=== PATIENT | female | born 1965 | race Caucasian/White ===

== ENCOUNTER 2018-09-23 12:16 | Emergency (ER) | payer BC, OTHER ==
[2018-09-23] MEDS ORDERED: NA CHLORIDE 0.9% 1,000 ML ONE ×2 (13:51→16:09)
[2018-09-23] MEDS ORDERED: MECLIZINE HCL 12.5 MG TAB ONE (13:51)
[2018-09-23] MEDS ORDERED: KETOROLAC 30 MG/ML INJ ONE (13:51)
[2018-09-23] MEDS ORDERED: ONDANSETRON 4 MG/2 ML VIAL ONE (13:51)
[2018-09-23 14:08] LABS: Absolute Lymphocytes (CBC) 1.9 K/uL (0.7-4.9); Absolute Monocytes 0.4 K/uL (0.1-1.3); Eosinophils % 1.4 % (0-4.4); Hematocrit 45.9 % (36.0-45.0); Lymphocytes % 28.8 % (15.3-44.8); MPV 9.2 fL (7.6-11.3); Monocytes % 6.4 % (3.3-12.3); RBC Red Blood Cell Count 4.95 M/uL (3.86-4.86)
[2018-09-23 14:18] LABS: Potassium 3.9 mmol/L (3.5-5.1)
[2018-09-23] MEDS ORDERED: PROMETHAZINE 25 MG/ML VIAL ONE (15:12)
--- NOTE | 2018-09-23 17:02 | ER ---
Nurse's Notes [facility] Name: Perry Guaman Age: 53 yrs Sex: Female : 1965 Arrival Date: 09/23/2018 Time: 12:19 Bed 25 Private MD: Adrián Stevens Diagnosis: Volume depletion;Dizziness and giddiness Presentation: 09/23 12:40 Presenting complaint: Patient states: vomiting and dizziness that began yesterday. Pt aa5 reports pain to forehead and cheeks and slight cough. Transition of care: patient was not received from another setting of care. Onset of symptoms was September 2018. Risk Assessment: Do you want to hurt yourself or someone else? Patient reports no desire to harm self or others. Initial Sepsis Screen: Does the patient meet any 2 criteria? No. Patient's initial sepsis screen is negative. Does the patient have a suspected source of infection? No. Patient's initial sepsis screen is negative. Care prior to arrival: None. 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 - Social history:: Smoking status: Patient/guardian denies using tobacco. - Ebola Screening: : No symptoms or risks identified at this time. Screenin:08 Abuse screen: Denies threats or abuse. Denies injuries from another. Nutritional rv screening: No deficits noted. Tuberculosis screening: No symptoms or risk factors identified. Fall Risk None identified. Assessment: 15:07 General: Appears in no apparent distress. comfortable, Behavior is calm, cooperative. rv Pain: Complains of pain in head. Neuro: Level of Consciousness is awake, alert, obeys commands, Oriented to person, place, time, situation, Reports headache. Cardiovascular: Capillary refill < 3 seconds. Respiratory: Airway is patent. GI: Abdomen is round. : No signs and/or symptoms were reported regarding the genitourinary system. EENT: No signs and/or symptoms were reported regarding the EENT system. Derm: Skin is intact. Musculoskeletal: No signs and/or symptoms reported regarding the musculoskeletal system. 16:00 Reassessment: Patient appears in no apparent distress at this time. Patient and/or rv family updated on plan of care and expected duration. Pain level reassessed. Patient is alert, oriented x 3, equal unlabored respirations, skin warm/dry/pink. Patient denies pain at this time. Patient states feeling better. Patient states symptoms have improved. 17:18 Reassessment: PATIENT DOES NOT COMPLAIN OF HEADACHE AND DIZZINESS UPON DISCHARGE. rv VERBALIZED THAT SHE GOT A RIDE GOING HOME. Vital Signs: 12:41 BP 124 / 79; Pulse 95; Resp 18 S; Temp 98.5(O); Pulse Ox 97% on R/A; Weight 81.65 kg aa5 (R); Height 5 ft. 4 in. (162.56 cm) (R); Pain 10/10; 13:23 BP 113 / 62 LA Supine (auto/lg); Pulse 92; Resp 18; Pulse Ox 100% on R/A; jp3 13:25 BP 118 / 73 LA Sitting (auto/lg); Pulse 107; Resp 18; Pulse Ox 100% on R/A; jp3 13:27 BP 111 / 70 LA Standing (auto/lg); Pulse 125; Resp 18; Pulse Ox 100% on R/A; jp3 15:53 Pulse 81; Resp 18; Pulse Ox 99% on R/A; mg2 15:58 BP 112 / 60; Pulse 71; Resp 16; Pulse Ox 100% ; rv 17:00 BP 123 / 82 RA Supine; Pulse 72; Resp 17 S; Pulse Ox 100% on R/A; rv 12:41 Body Mass Index 30.90 (81.65 kg, 162.56 cm) aa5 13:23 Pt reported "feeling nausea, pounding headache, constant stomach pain" jp3 13:25 Pt reported "shaking of body, nausea, and felt about the same as supine" jp3 13:27 Pt reported " harder to breathe, dizziness, body shakes worse, and worse feeling jp3 postion of the three orthostatic" ED Course: 12:19 Patient arrived in ED. mr 12:19 Adrián Stevens MD is Private Physician. mr 12:40 Arm band placed on. aa5 12:41 Triage completed. aa5 13:11 [facility] kb 13:11 Bhupendra Courtney MD is Attending Physician. kb 13:19 Eduardo Swanson, RN is Primary Nurse. rv 13:30 Pulse ox on. NIBP on. jp3 13:30 Bed in low position. Call light in reach. Side rails up X 1. jp3 13:40 Initial lab(s) drawn, by mo, sent to lab. Inserted saline lock: 22 gauge in left jp3 forearm, using aseptic technique. Inserted saline lock: Blood collected. 13:48 Basic Metabolic Panel Sent. jp3 13:48 CBC with Diff Sent. jp3 17:17 No provider procedures requiring assistance completed. IV discontinued, intact, rv bleeding controlled, No redness/swelling at site. Pressure dressing applied. Administered Medications: 13:45 Drug: Zofran 4 mg Route: IVP; Site: left forearm; rv 15:06 Follow up: Response: Nausea is decreased rv 13:45 Drug: NS 0.9% 1000 ml Route: IV; Rate: 1000 ml; Site: left forearm; rv 15:06 Follow up: IV Status: Completed infusion; IV Intake: 1000ml rv 13:45 Drug: TORadol 30 mg Route: IVP; Site: left antecubital; rv 15:06 Follow up: Response: Pain is decreased rv 14:43 Drug: Meclizine 25 mg Route: PO; rv 15:59 Follow up: Response: No adverse reaction; Marked relief of symptoms rv 15:06 Drug: Phenergan 12.5 mg Route: IVP; Site: left forearm; rv 15:59 Follow up: Response: Marked relief of symptoms rv 16:03 Drug: NS 0.9% 1000 ml Route: IV; Rate: 1000 ml; Site: left forearm; rv 16:56 Follow up: IV Status: Completed infusion; IV Intake: 1000ml rv Intake: 15:06 IV: 1000ml; Total: 1000ml. rv 16:56 IV: 1000ml; Total: 2000ml. rv Outcome: 17:02 Discharge ordered by . kb 17:18 Discharged to home ambulatory. rv 17:18 Condition: good 17:18 Discharge instructions given to patient, Instructed on discharge instructions, follow up and referral plans. medication usage, Demonstrated understanding of instructions, follow-up care, medications, Prescriptions given X 2. 17:20 Patient left the ED. rv Signatures: Jaclyn Simpson, ENDOCRINOLOGY PHYSICIAN-C ENDOCRINOLOGY PHYSICIAN-CkJennifer Brody mr Randhawa, Telma, RN RN aa5 Shabbir Og RN RN mg2 Eduardo Swanson RN RN rv Syed Mahan jp3
--- NOTE | 2018-09-23 17:02 | EDPHYS ---
Physician Documentation [facility] [place], [place] Name: Perry Guaman Age: 53 yrs Sex: Female : 1965 Arrival Date: 09/23/2018 Time: 12:19 Bed 25 Private MD: Adrián Stevens ED Physician Bhupendra Courtney HPI: 09/23 14:09 This 53 yrs old Female presents to ER via Ambulatory with complaints of kb Vomiting, Dizziness. 14:10 The patient presents with dizziness. Onset: The symptoms/episode began/occurred this kb morning. Context: occurred at home, occurred while the patient was getting up from bed, just prior to the episode the patient experienced no apparent symptoms. Modifying factors: The symptoms are alleviated by nothing, the symptoms are aggravated by movement of head, standing up, changing position. Associated signs and symptoms: Pertinent positives: nausea, vomiting, Pertinent negatives: abdominal pain, agitation, ataxia, blurred vision, chest pain, combativeness, confusion, diaphoresis, focal weakness, head injury, headache, near-syncope, numbness, palpitations, , seizure, shortness of breath, syncope, tingling. Severity of symptoms: At their worst the symptoms were moderate in the emergency department the symptoms are unchanged. Patient's baseline: Neuro: alert and fully oriented, Motor: no deficits, Ambulation: walks without assistance, Speech: normal. The patient has not experienced similar symptoms in the past. The patient has not recently seen a physician. 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 - Social history:: Smoking status: Patient/guardian denies using tobacco. - Ebola Screening: : No symptoms or risks identified at this time. ROS: 14:08 Constitutional: Negative for fever, chills, and weight loss, ENT: Negative for injury, kb pain, and discharge, Neck: Negative for injury, pain, and swelling, Cardiovascular: Negative for chest pain, palpitations, and edema, Respiratory: Negative for shortness of breath, cough, wheezing, and pleuritic chest pain, Back: Negative for injury and pain, : Negative for injury, bleeding, discharge, and swelling, MS/Extremity: Negative for injury and deformity, Skin: Negative for injury, rash, and discoloration. 14:08 Abdomen/GI: Positive for nausea and vomiting, Negative for abdominal pain, diarrhea, constipation, abdominal cramps, abdominal distension, anorexia. 14:08 Neuro: Positive for dizziness. Exam: 14:07 Constitutional: This is a well developed, well nourished patient who is awake, alert, kb and in no acute distress. Head/Face: Normocephalic, atraumatic. Eyes: Pupils equal round and reactive to light, extra-ocular motions intact. Lids and lashes normal. Conjunctiva and sclera are non-icteric and not injected. Cornea within normal limits. Periorbital areas with no swelling, redness, or edema. ENT: Nares patent. No nasal discharge, no septal abnormalities noted. Tympanic membranes are normal and external auditory canals are clear. Oropharynx with no redness, swelling, or masses, exudates, or evidence of obstruction, uvula midline. Mucous membranes moist. Neck: Trachea midline, no thyromegaly or masses palpated, and no cervical lymphadenopathy. Supple, full range of motion without nuchal rigidity, or vertebral point tenderness. No Meningismus. Chest/axilla: Normal chest wall appearance and motion. Nontender with no deformity. No lesions are appreciated. Cardiovascular: Regular rate and rhythm with a normal S1 and S2. No gallops, murmurs, or rubs. Normal PMI, no JVD. No pulse deficits. Respiratory: Lungs have equal breath sounds bilaterally, clear to auscultation and percussion. No rales, rhonchi or wheezes noted. No increased work of breathing, no retractions or nasal flaring. Abdomen/GI: Soft, non-tender, with normal bowel sounds. No distension or tympany. No guarding or rebound. No evidence of tenderness throughout. Back: No spinal tenderness. No costovertebral tenderness. Full range of motion. Skin: Warm, dry with normal turgor. Normal color with no rashes, no lesions, and no evidence of cellulitis. MS/ Extremity: Pulses equal, no cyanosis. Neurovascular intact. Full, normal range of motion. Neuro: Awake and alert, GCS 15, oriented to person, place, time, and situation. Cranial nerves II-XII grossly intact. Motor strength 5/5 in all extremities. Sensory grossly intact. Cerebellar exam normal. Normal gait. Vital Signs: 12:41 BP 124 / 79; Pulse 95; Resp 18 S; Temp 98.5(O); Pulse Ox 97% on R/A; Weight 81.65 kg aa5 (R); Height 5 ft. 4 in. (162.56 cm) (R); Pain 10/10; 13:23 BP 113 / 62 LA Supine (auto/lg); Pulse 92; Resp 18; Pulse Ox 100% on R/A; jp3 13:25 BP 118 / 73 LA Sitting (auto/lg); Pulse 107; Resp 18; Pulse Ox 100% on R/A; jp3 13:27 BP 111 / 70 LA Standing (auto/lg); Pulse 125; Resp 18; Pulse Ox 100% on R/A; jp3 15:53 Pulse 81; Resp 18; Pulse Ox 99% on R/A; mg2 15:58 BP 112 / 60; Pulse 71; Resp 16; Pulse Ox 100% ; rv 17:00 BP 123 / 82 RA Supine; Pulse 72; Resp 17 S; Pulse Ox 100% on R/A; rv 12:41 Body Mass Index 30.90 (81.65 kg, 162.56 cm) aa5 13:23 Pt reported "feeling nausea, pounding headache, constant stomach pain" jp3 13:25 Pt reported "shaking of body, nausea, and felt about the same as supine" jp3 13:27 Pt reported " harder to breathe, dizziness, body shakes worse, and worse feeling jp3 postion of the three orthostatic" MDM: 13:11 Patient medically screened. kb 14:07 Data reviewed: vital signs, nurses notes. Data interpreted: Pulse oximetry: on room air kb is 100 %. Interpretation: normal. 16:10 Counseling: I had a detailed discussion with the patient and/or guardian regarding: the kb historical points, exam findings, and any diagnostic results supporting the discharge/admit diagnosis, lab results, the need for outpatient follow up, a family practitioner, to return to the emergency department if symptoms worsen or persist or if there are any questions or concerns that arise at home. 09/23 13:19 Order name: CBC with Diff; Complete Time: 14:15 kb 09/23 13:19 Order name: Basic Metabolic Panel; Complete Time: 14:19 kb 09/23 17:08 Order name: Urine Dipstick--Ancillary (enter results) bd 09/23 13:19 Order name: Orthostatics; Complete Time: 13:33 kb 09/23 13:19 Order name: Urine Dipstick-Ancillary (obtain specimen); Complete Time: 17:17 kb 09/23 13:19 Order name: IV Start; Complete Time: 13:48 kb 09/23 15:36 Order name: Vital Signs; Complete Time: 15:55 kb Administered Medications: 13:45 Drug: Zofran 4 mg Route: IVP; Site: left forearm; rv 15:06 Follow up: Response: Nausea is decreased rv 13:45 Drug: NS 0.9% 1000 ml Route: IV; Rate: 1000 ml; Site: left forearm; rv 15:06 Follow up: IV Status: Completed infusion; IV Intake: 1000ml rv 13:45 Drug: TORadol 30 mg Route: IVP; Site: left antecubital; rv 15:06 Follow up: Response: Pain is decreased rv 14:43 Drug: Meclizine 25 mg Route: PO; rv 15:59 Follow up: Response: No adverse reaction; Marked relief of symptoms rv 15:06 Drug: Phenergan 12.5 mg Route: IVP; Site: left forearm; rv 15:59 Follow up: Response: Marked relief of symptoms rv 16:03 Drug: NS 0.9% 1000 ml Route: IV; Rate: 1000 ml; Site: left forearm; rv 16:56 Follow up: IV Status: Completed infusion; IV Intake: 1000ml rv Disposition: 17:45 Co-signature as Attending Physician, Bhupendra Courtney MD I agree with the assessment and kdr plan of care. Disposition: 09/23/18 17:02 Discharged to Home. Impression: Volume depletion, Dizziness and giddiness. - Condition is Stable. - Discharge Instructions: Vertigo, Xngs-bh-Cvjm, Dehydration, Adult, Ncas-og-Vqks, Dizziness, Mlnb-fo-Ggxx. - Prescriptions for Meclizine 25 mg Oral Tablet - take 1 tablet by ORAL route every 8 hours As needed; 30 tablet. promethazine 25 mg Oral Tablet - take 1 tablet by ORAL route every 8 hours As needed; 20 tablet. - Medication Reconciliation Form, Thank You Letter, Antibiotic Education, Prescription Opioid Use, Work release form form. - Follow up: Emergency Department; When: As needed; Reason: Worsening of condition. Follow up: Private Physician; When: 2 - 3 days; Reason: Recheck today's complaints, Continuance of care, Re-evaluation by your physician. Signatures: Dispatcher [employer] EDMS Jaclyn Simpson, REACHER-C REACHER-Ckb Bhupendra Courtney MD MD kdr Telma Randhawa RN RN aa5 Eduardo Swanson RN RN rv Corrections: (The following items were deleted from the chart) 17:20 17:02 09/23/2018 17:02 Discharged to Home. Impression: Volume depletion; Dizziness and rv giddiness. Condition is Stable. Discharge Instructions: Vertigo, Hgbt-jh-Fvli, Dehydration, Adult, Bjcp-pz-Qbro, Dizziness, Dapj-nb-Bsgx. Prescriptions for Meclizine 25 mg Oral Tablet - take 1 tablet by ORAL route every 8 hours As needed; 30 tablet, promethazine 25 mg Oral Tablet - take 1 tablet by ORAL route every 8 hours As needed; 20 tablet. and Forms are Medication Reconciliation Form, Thank You Letter, Antibiotic Education, Prescription Opioid Use. Follow up: Emergency Department; When: As needed; Reason: Worsening of condition. Follow up: Private Physician; When: 2 - 3 days; Reason: Recheck today's complaints, Continuance of care, Re-evaluation by your physician. kb
[2018-09-23 18:05] VITALS: TEMP 98.5
[2018-09-23 18:13] VITALS: O2SAT 100
[2018-09-23 18:14] VITALS: BP 123/82
[2018-09-23 19:06] LABS: Urine Blood TRACE (NEG); Urine Glucose NEGATIVE (NEG); Urine Protein NEGATIVE (NEG)
== END 2018-09-23 17:20 | disposition home or self-care (01) ==
LOC: ER 12:16
DX: E86.9 Volume depletion, unspecified (principal); R42 Dizziness and giddiness; R11.2 Nausea with vomiting, unspecified; Z88.1 Allergy status to other antibiotic agents; Z88.5 Allergy status to narcotic agent
CPT/HCPCS: 36415; 80048; 81003; 85025; 96361; 96374; 96375; 99284; J2405; J2550; J7030

== ENCOUNTER 2020-04-17 14:52 | Emergency (ER) | payer BC ==
--- OUTSIDE RECORDS SUMMARY | 2020-04-17 14:54 | XMS REPORT | Continuity of Care Document ---
:1965 Author Organization [facility] t Address [address] [place] [address] Care Team Providers Name Role Phone Christopher Leslie Attending Clinician Doctor Unassigned, Name Attending Clinician Unavailable Payers Payer Name Policy Type Policy Number Effective Date Expiration Date S ource Problems This patient has no known problems. Allergies, Adverse Reactions, Alerts This patient has no known allergies or adverse reactions. Medications This patient has no known medications. Procedures This patient has no known procedures. Encounters Start End Encounter Admission Attending Care Care Encounter Source Date/Time Date/Time Type Type Clinicians Facility Department ID 2019-07-07 2019-07-07 Emergency [facility] [id number] 14:28:25 17:05:00 Racquel Jeffries [id number] [place] [id number] [place] [id number] 2019-07-07 2019-07-07 Orders Doctor WALE [id number] 00:00:00 00:00:00 Only UnassLORI moore [id number] [place] [facility] [id number] Results Test Description Test Time Test Comments Results Result Sour e Comments - CT MAXIFAC W/O 2018-12-27 Name: TOSHA AGUIRRE CONTRAST 13:46:00 [facility] : 1965 Age/S: 53 / F [id number] [address] [place] Unit #: [id number] Loc: [place] [address] Phys: Derrek Golden III, MD Acct: [id number] Dis Date: Status: REG CLI PHONE #: [phone] Exam Date: 12/27/2018 1121 FAX #: Reason: CHRONIC SINUSITIS EXAMS: CPT: [id number] CT MAXIFAC W/O CONTRAST 03098 CLINICAL HISTORY: Chronic sinusitis. CT sinuses, unenhanced. Reformatted sagittal and coronal images. COMPARISON: None. Automated exposure control, iterative reconstruction technique, and/or adjustment of mA and/or kV according to patient's size was utilized for optimum radiation dose reduction. An unenhanced study of the the sinuses was performed on bone algorithm settings. The frontal sinuses are well-developed and well inflated with no mucoperiosteal thickening. Ethmoid air cells symmetric as well. Normal aeration pattern. Sphenoid sinuses are clear. The maxillary sinuses are well-inflated with no fluid levels are seen with sinusitis. Unerupted wisdom teeth at the posterior margins of the maxillary sinuses at the maxillary ridge. No inflammatory changes in the area can be seen. Temporal bones are well-aerated. Middle ear structures grossly intact. TMJ articulations are appropriate.. The reformatted coronal images show the sinuses well-inflated. Nasal passages symmetric. Small right nasal septal spur but no significant deviation. Infundibular areas are intact. Medial and orbital floors preserved. The soft tissue window settings show parotid glands intact. Nasopharyngeal soft tissues are symmetric. Parapharyngeal spaces are intact. Orbital contents appropriate as well. IMPRESSION: No evidence of acute or chronic sinusitis. Nasal passages intact with small right nasal septal spur but no deviation of the septum distinctly. Location: U19 at 1346 Reported and signed by: Elie Dorado M.D. PAGE 1 Signed Report (CONTINUED) Name: TOSHA AGUIRRE [place] : 1965 Age/S: 53 / F [id number] [address] [place] Unit #: [id number] Loc: [place] [address] Phys: Derrek Golden III, MD Acct: [id number] Dis Date: Status: REG CLI PHONE #: [phone] Exam Date: 12/27/2018 1121 FAX #: Reason: CHRONIC SINUSITIS EXAMS: CPT: [id number] CT MAXIFAC W/O CONTRAST 19531 <Continued> CC: Adrián Stevens MD; Derrek Golden III, MD Technologist:Salas Sherman, RT(R)(CT) CTDI: DLP: Trnscb Date/Time: 12/27/2018 (9560) Chris Orig Print D/T: S: 12/27/2018 (2642) PAGE 2 Signed Report
--- NOTE | 2020-04-17 15:55 | ER ---
Nurse's Notes [facility] Name: Perry Guaman Age: 54 yrs Sex: Female : 1965 Arrival Date: 04/17/2020 Time: 15:01 Bed 26 Private MD: Diagnosis: Otitis externa in other diseases classified elsewhere, left ear;Otitis media, unspecified, left ear Presentation: 04/17 15:11 Chief complaint: Patient states: "My left ear is hurting me and I am having some jd3 hearing loss.". Coronavirus screen: At this time, the client does not indicate any symptoms associated with coronavirus-19. Ebola Screen: Patient negative for fever greater than or equal to 101.5 degrees Fahrenheit, and additional compatible Ebola Virus Disease symptoms. Initial Sepsis Screen: Does the patient meet any 2 criteria? No. Patient's initial sepsis screen is negative. Does the patient have a suspected source of infection? No. Patient's initial sepsis screen is negative. Risk Assessment: Do you want to hurt yourself or someone else? Patient reports no desire to harm self or others. Onset of symptoms was April 10, 2020. 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 - Social history:: Smoking status: Patient denies any tobacco usage or history of. Screenin:30 Abuse screen: Denies threats or abuse. Nutritional screening: No deficits noted. aa5 Tuberculosis screening: No symptoms or risk factors identified. Fall Risk None identified. Assessment: 15:30 General: Appears comfortable, Behavior is calm, cooperative. Pain: Complains of pain in aa5 left ear Pain currently is 10 out of 10 on a pain scale. Neuro: Level of Consciousness is awake, alert, obeys commands, Oriented to person, place, time, situation. Cardiovascular: Heart tones S1 S2 present Rhythm is regular. Respiratory: Airway is patent Respiratory effort is even, unlabored, Respiratory pattern is regular, symmetrical. GI: No signs and/or symptoms were reported involving the gastrointestinal system. : No signs and/or symptoms were reported regarding the genitourinary system. EENT: Reports pain in left ear. Derm: Skin is pink, warm \\T\\ dry. Musculoskeletal: Range of motion: intact in all extremities. 16:00 Reassessment: Patient is alert, oriented x 3, equal unlabored respirations, skin aa5 warm/dry/pink. Vital Signs: 15:14 BP 129 / 66; Pulse 84; Resp 16 S; Temp 98.0(TE); Pulse Ox 100% on R/A; Weight 81.65 kg jd3 (R); Height 5 ft. 4 in. (162.56 cm) (R); Pain 10/10; 15:14 Body Mass Index 30.90 (81.65 kg, 162.56 cm) jd3 ED Course: 15:01 Patient arrived in ED. ag5 15:12 Triage completed. jd3 15:15 Arm band placed on. jd3 15:19 Telma Randhawa, NICHO is Primary Nurse. aa5 15:30 Patient has correct armband on for positive identification. Bed in low position. aa5 15:31 Chinedu Read PA is PHCP. cp 15:31 Wm Peralta MD is Attending Physician. cp 15:54 Aide Snider MD is Referral Physician. cp 16:00 No provider procedures requiring assistance completed. Patient did not have IV access aa5 during this emergency room visit. Administered Medications: No medications were administered Outcome: 15:54 Discharge ordered by MD. cp 16:00 Discharged to home ambulatory. aa5 16:00 Condition: stable 16:00 Discharge instructions given to patient, Instructed on discharge instructions, follow up and referral plans. medication usage, Demonstrated understanding of instructions, follow-up care, medications, Prescriptions given X 2. 16:03 Patient left the ED. aa5 Signatures: Telma Randhawa, RN RN aa5 Chinedu Read PA PA cp Davies, Jonathon, RN RN jShaquille Cerrato ag5 Corrections: (The following items were deleted from the chart) 15:16 15:14 Pulse 84bpm; Resp 16bpm; Spontaneous; Pulse Ox 100% RA; Temp 98.0F Temporal; jd3 81.65 kg Reported; Height 5 ft. 4 in. Reported; BMI: 30.9; Pain 03/13; jd3
--- NOTE | 2020-04-17 15:55 | EDPHYS ---
Physician Documentation [facility] Name: Perry Guaman Age: 54 yrs Sex: Female : 1965 Arrival Date: 04/17/2020 Time: 15:01 Bed 26 Private MD: ED Physician Wm Peralta HPI: 04/17 15:51 This 54 yrs old Female presents to ER via Ambulatory with complaints of Ear cp Pain. 15:51 The patient presents with drainage, that is purulent, pain, that is acute, swelling, cp tenderness. The complaints affect the left ear. 15:52 Onset: The symptoms/episode began/occurred 4 day(s) ago. Associated signs and symptoms: cp Pertinent negatives: cough, fever. ENGAGEMENT LEAD: 15:14 LMP N/A - Hysterectomy jd3 Historical: - Allergies: 15:14 Demerol; jd3 15:14 Septra; jd3 15:14 Bactrim; jd3 - Home Meds: 15:14 Flonase Nasal [Active]; Singulair Oral [Active]; jd3 - PMHx: 15:14 Renal Disease; jd3 - PSHx: 15:14 Hysterectomy; heart ablation; jd3 - Immunization history:: Adult Immunizations up to date. - Social history:: Smoking status: Patient denies any tobacco usage or history of. ROS: 15:52 Constitutional: Negative for body aches, chills, fever, poor PO intake. cp 15:52 ENT: Positive for drainage from ear(s), ear pain, Negative for sore throat, difficulty swallowing, difficulty handling secretions. 15:52 Respiratory: Negative for cough, shortness of breath, wheezing. cp 15:52 Abdomen/GI: Negative for abdominal pain, nausea, vomiting, and diarrhea. cp 15:52 Skin: Negative for rash. 15:52 Neuro: Negative for dizziness, headache. 15:52 All other systems are negative. Exam: 15:53 Head/Face: Normocephalic, atraumatic. cp 15:53 Constitutional: The patient appears in no acute distress, alert, awake, non-toxic, well developed, well nourished. 15:53 Eyes: Periorbital structures: appear normal, Conjunctiva: normal, no exudate, no injection, Sclera: no appreciated abnormality, Lids and lashes: appear normal, bilaterally. 15:53 ENT: External ear(s): pain with movement, that is mild, of the pinna of left ear and left ear canal, Ear canal(s): purulent discharge, that is moderate, in the left canal, swelling, that is moderate, of the left canal, TM's: not visable, because of discharge, Examination of the other ear shows no obvious abnormality. 15:53 Neck: ROM/movement: is normal, is supple, without pain, no range of motions cp limitations, Lymph nodes: no appreciated lymphadenopathy. 15:53 Chest/axilla: Inspection: normal. cp 15:53 Cardiovascular: Rate: normal. 15:53 Respiratory: the patient does not display signs of respiratory distress, Respirations: normal, no use of accessory muscles, no retractions. 15:53 Skin: no rash present. Vital Signs: 15:14 BP 129 / 66; Pulse 84; Resp 16 S; Temp 98.0(TE); Pulse Ox 100% on R/A; Weight 81.65 kg jd3 (R); Height 5 ft. 4 in. (162.56 cm) (R); Pain 10/10; 15:14 Body Mass Index 30.90 (81.65 kg, 162.56 cm) jd3 MDM: 15:32 Patient medically screened. cp 15:53 Differential diagnosis: otitis media, otitis externa, ruptured TM, foreign body, cp cerumen impaction, barotrauma . Counseling: I had a detailed discussion with the patient and/or guardian regarding: the historical points, exam findings, and any diagnostic results supporting the discharge/admit diagnosis, to return to the emergency department if symptoms worsen or persist or if there are any questions or concerns that arise at home. 15:54 Data reviewed: vital signs, nurses notes, and as a result, I will discharge patient. cp Administered Medications: No medications were administered Disposition: 16:05 Chart complete. cp 17:24 Co-signature as Attending Physician, Wm Peralta MD. rn Disposition: 04/17/20 15:54 Discharged to Home. Impression: Otitis externa in other diseases classified elsewhere, left ear, Otitis media, unspecified, left ear. - Condition is Stable. - Discharge Instructions: Otitis Media, Adult, Otitis Externa. - Prescriptions for Augmentin 875- 125 mg Oral Tablet - take 1 tablet by ORAL route every 12 hours for 10 days; 20 tablet. Ciprodex 0.3- 0.1 % Otic Drops, Suspension - instill 4 drop by OTIC route every 12 hours for 7 days , for ears ONLY; 1 Container. - Medication Reconciliation Form, Thank You Letter, Antibiotic Education, Prescription Opioid Use form. - Follow up: Aide Snidre MD; When: 2 - 3 days; Reason: Recheck today's complaints. - Problem is new. - Symptoms have improved. Signatures: Wm Peralta MD MD rn Calderon, Audri RN RN aa5 Chinedu Read PA PA cp Frenie Hill RN RN jd3 Corrections: (The following items were deleted from the chart) 15:55 15:54 04/17/2020 15:54 Discharged to Home. Impression: Otitis externa in other diseases cp classified elsewhere, left ear. Condition is Stable. Forms are Medication Reconciliation Form, Thank You Letter, Antibiotic Education, Prescription Opioid Use. Follow up: Aide Snider; When: 2 - 3 days; Reason: Recheck today's complaints. Problem is new. Symptoms have improved. cp 16:03 15:55 04/17/2020 15:54 Discharged to Home. Impression: Otitis externa in other diseases aa5 classified elsewhere, left ear; Otitis media, unspecified, left ear. Condition is Stable. Discharge Instructions: Otitis Externa, Otitis Media, Adult. Prescriptions for Augmentin 875-125 mg Oral Tablet - take 1 tablet by ORAL route every 12 hours for 10 days; 20 tablet, Ciprodex 0.3-0.1 % Otic Drops, Suspension - instill 4 drop by OTIC route every 12 hours for 7 days , for ears ONLY; 1 Container. and Forms are Medication Reconciliation Form, Thank You Letter, Antibiotic Education, Prescription Opioid Use. Follow up: Aide Snider; When: 2 - 3 days; Reason: Recheck today's complaints. Problem is new. Symptoms have improved. cp
[2020-04-17 16:30] VITALS: BP 129/66; TEMP 98; O2SAT 100
== END 2020-04-17 16:03 | disposition home or self-care (01) ==
LOC: ER 14:52
DX: H66.92 Otitis media, unspecified, left ear (principal); H60.92 Unspecified otitis externa, left ear; N28.9 Disorder of kidney and ureter, unspecified; Z88.1 Allergy status to other antibiotic agents; Z88.5 Allergy status to narcotic agent; Z88.8 Allergy status to other drugs, medicaments and biological substances
CPT/HCPCS: 99282

== ENCOUNTER 2021-07-15 08:16 | Emergency (ER) | payer BC ==
--- OUTSIDE RECORDS SUMMARY | 2021-07-15 08:19 | XMS REPORT | Continuity of Care Document ---
:1965 Author Organization [facility] t Address [address] [place] [address] Care Team Providers Name Role Phone Christopher Leslie Attending Clinician Christopher CLEMENT Attending Clinician Unavailable Doctor Unassigned, Name Attending Clinician Unavailable Payers Payer Name Policy Type Policy Number Effective Date Expiration Date Teddy MARTINEZ O [id number] 2016 00:00:00 2017 00:00 :00 Problems Condition Condition Condition Status Onset Resolution Last Treating Co mments Source Name Details Category Date Date Treatment Clinician Date Acute pain Acute pain Disease Active U nivers of right of right 3-16 ity of knee knee 00:00: [place] 00 Medical Branch Allergies, Adverse Reactions, Alerts Allergy Allergy Status Severity Reaction(s) Onset Inactive Treating Comm ents Source Name Type Date Date Clinician SULFA Drug Active Hives 2016-06 Univers (SULFONA Class 1-12 ity of MIDE 00:00: [place] ANTIBIOT 00 Medical ICS) Branch Sulfa Propensi Active Hives 2016-06 Univers (Sulfona ty to 1-12 ity of mide adverse 00:00: [place] Antibiot reaction 00 Medica l ics) s Branch Meperidi Propensi Active Nausea Univer s ne Hcl ty to and/or 3-16 ity of adverse Vomiting 00:00: [place] reaction 00 Medical s Branch Septra Propensi Active Nausea Univers I.V. ty to and/or 3-16 ity of adverse Vomiting 00:00: [place] reaction 00 Medical s Branch MEPERIDI DRUG Active Hives Univers NE HCL INGREDI 3-16 ity of 00:00: [place] [facility] SEPTRA DRUG Active Hives Univers I.V. 3-16 ity of 00:00: [place] [facility] Social History Social Habit Start Date Stop Date Quantity Comments Source Sex Assigned At [facility] Medical Branch Alcohol intake 2019-07-07 2019-07-07 [facility] 00:00:00 00:00:00 [facility] Branch Smoking Status Start Date Stop Date Source Never smoker [facility] Medications Ordered Filled Start Stop Current Ordering Indication Dosage Frequency Signature Comments Components Source Medication Medication Date Date Medication? Clinician (SIG) Name Name ondansetron 2019-0 2020- No 4mg 4 mg, Slow Univers (ZOFRAN 2-08 03-03 IV Push, ity of (PF)) 23:15: 22:10 ONCE, 1 [place] injection 4 00 :00 dose, Mon Med ical mg 20 at Branch 1715, [facility] NaCl 0.9% 2020-0 2020- No 1000mL at 999 Uni vers (NS) bolus 2-03 02-03 mL/hr, ity of infusion 22:15: 23:02 1,000 mL, [place] as 1,000 mL 00 :00 IV Medical Infusion, [place] ONCE, 1 dose, 07/07/19 at 1615, [facility] ondansetron 2019-0 2020- No 4mg 4 mg, Slow Univers (ZOFRAN 2 02-03 IV Push, ity of (PF)) 22:00: 21:04 ONCE, 1 [place] injection 4 00 :00 dose, Mon Med ical mg 2/320 at Branch 1600, [facility] NaCl 0.9% 2020-0 2020- No 1000mL at 999 Uni vers (NS) bolus 2-03 02-03 mL/hr, ity of infusion 21:00: 22:11 1,000 mL, [place] as 1,000 mL 00 :00 IV Medical Infusion, [place] ONCE, 1 dose, 07/07/19 at 1500, [facility] ONDANSETRON 2020-0 Yes [id number] 4mg Take 1 Univers 4 mg 2-03 tablet by ity of disintegrat 00:00: mouth [place] ing tablet 00 every 8 Medica l (eight) Branch hours as needed for Nausea and Vomiting (N/V). methylPREDN 2017-0 Yes 84mg Take 21 Uni vers ISolone 3-16 tablets by ity of (MEDROL, 00:00: mouth [place] THALIA,) 4 mg 00 SEE-INSTRU Med ical tablets CTIONS. Branch follow package directions methylPREDN 2017-0 Yes 84mg Take 21 Uni vers ISolone 3-16 tablets by ity of (MEDROL, 00:00: mouth [place] THALIA,) 4 mg 00 SEE-INSTRU Med ical tablets CTIONS. Branch follow package directions Vital Signs Vital Name Observation Time Observation Value Comments Source Systolic blood 2019-07-07 22:52:00 116 mm[Hg] Univer sity of [email or web address] Diastolic blood 2019-07-07 22:52:00 60 mm[Hg] [facility] [[email or web address] Heart rate 2019-07-07 22:52:00 70 /min [facility] Respiratory rate 2019-07-07 22:52:00 14 /min [facility] saturation in 2019-07-07 22:52:00 100 /min University of Arterial blood by [place] [employer] [facility]sy Pulse oximetry Branch Body temperature 2019-07-07 20:45:50 36.89 Erna [facility] Body weight 2019-07-07 20:29:00 74.844 kg [facility] BMI 2019-07-07 20:29:00 28.32 kg/m2 [facility] Systolic blood 2019-07-07 22:52:00 116 mm[Hg] Univer sity of [email or web address] Diastolic blood 2019-07-07 22:52:00 60 mm[Hg] [facility] rate 2019-07-07 22:52:00 70 /min [facility] Respiratory rate 2019-07-07 22:52:00 14 /min [facility] Oxygen saturation in 2019-07-07 22:52:00 100 /min University of Arterial blood by [place] [employer] [facility] Pulse oximetry Branch Body temperature 2019-07-07 20:45:50 36.89 Erna [facility] Body weight 2019-07-07 20:29:00 74.844 kg [facility] BMI 2019-07-07 20:29:00 28.32 kg/m2 Universi ty [facility] Procedures Procedure Date / Time Performing Clinician Source Performed URINALYSIS 2019-07-07 21:23:00 Xavier Clement [place] [facility] COMP. METABOLIC PANEL 2019-07-07 21:04:00 Xavier Clement [facility] ([id number]) [facility] CBC WITH DIFFERENTIAL 2019-07-07 21:04:00 Xavier Clement [facility] NOTICE OF PRIVACY 2019-07-07 20:16:20 Doctor Unassigned, No Univ [facility] PRACTICES Name [facility] CONSENT/REFUSAL FOR 2019-07-07 20:16:07 Doctor Unassigned, No [facility] DIAGNOSIS AND TREATMENT Name [facility] Encounters Start End Encounter Admission Attending Care Care Encounter Source Date/Time Date/Time Type Type Clinicians Facility Department ID 2019-07-07 2019-07-07 Emergency [facility] [id number] 14:28:25 17:05:00 Xavier Jeffries [id number] [place] 4.2.7.2.686 [place] [id number] 2019-07-07 2019-07-07 Emergency [facility] [id number] Univers 14:28:25 17:05:00 Xavier Jeffries [id number] i ty of [place] [address] [place] [address] [id number] [place] [address] Branch 2019-07-07 2019-07-07 Emergency X [facility] ERT [id number] Univers 14:28:25 17:05:00 XAVIER paul [facility] 2019-07-07 2019-07-07 Orders Doctor ECHEVARRIA [id number] 00:00:00 00:00:00 Only UnassLORI moore 350.1.13.[address] [place] [address] [id number] 2019-07-07 2019-07-07 Orders Doctor ECHEVARRIA [id number] Univers 00:00:00 00:00:00 Only UnassignedLORI 350.1.13.10 ity of [place] [facility] 4.2.7.2.686 Fed[place] as [id number] [address] Results Test Description Test Time Test Comments Results Result Comments Source URINALYSIS 2019-07-07 21:58:00 Test Item Value Reference Range Interpretation Comme nts APPEARANCE (test code = Hazy Clear A 9026665768) COLOR (test code = 1435477410) Yellow Yellow PH (test code = 7194869072) 4.8-8.0 SP GRAVITY (test code = 1.003-1.030 7579419639) GLU U QUAL (test code = Normal Normal 5837103962) BLOOD (test code = 2695524223) 2+ Negative A KETONES (test code = 3176871182) 80 mg/dL Negative A PROTEIN (test code = 2887-8) Negative Negative UROBILIN (test code = Normal Normal 1514681300) BILIRUBIN (test code = Negative Negative 1427449202) NITRITE (test code = 0415566961) Negative Negative LEUK PHOEBE (test code = 75/uL Negative A 4831228104) RBC/HPF (test code = 6380682687) See_Comment H [Automated message] The system which ge nerated this result transmit margaret reference range: 0 - 3 HP F. The reference range was not used to interpret th is result as normal/abnormal . WBC/HPF (test code = 4469799365) See_Comment [Automated message] The system which ge nerated this result transmit margaret reference range: 0 - 5 HP F. The reference range was not used to interpret th is result as normal/abnormal . BACTERIA (test code = Negative Negative 9270940358) MUCOUS (test code = 1272426859) Slight Negative LPF A SQ EPITH (test code = HPF 1796483292) Lab Interpretation (test code = Abnormal 96021-8) [facility]. METABOLIC PANEL ([id number])2019-07-07 21:49:00 Test Item Value Reference Range Interpretation Comments NA (test code = 137 mmol/L 135-145 3809965288) K (test code = 3.4 mmol/L 3.5-5 L 9275795980) CL (test code = 101 mmol/L 98-108 7185977232) CO2 TOTAL (test code = 24 mmol/L 23-31 0197157169) AGAP (test code = 2-16 0390688450) BUN (test code = 14 mg/dL 7-23 9109111459) GLUCOSE (test code = 94 mg/dL 70-110 7395046793) CREATININE (test code = 0.84 mg/dL 0.5-1.04 1894907968) TOTAL BILI (test code = 0.8 mg/dL 0.1-1.1 6754027957) CALCIUM (test code = 8.9 mg/dL 8.6-10.6 7950771964) T PROTEIN (test code = 8.2 g/dL 6.3-8.2 7367045164) ALBUMIN (test code = 4.6 g/dL 3.5-5 6541439453) ALK PHOS (test code = 193 U/L 34-122 H 2504561731) ALTv (test code = 35 U/L 5-35 1742-6) AST(SGOT) (test code = 44 U/L 13-40 H 3469810990) eGFR Calculation mL/min/1.73m2 (Non-) (test code = 8017746470) eGFR Calculation mL/min/1.73m2 () (test code = 2094959666) FRANCES (test code = FRANCES) Association of Glomerular Filtration Rate (GFR) and Staging of Kidney Disease* + --+ --+ ------+| GFR (mL/min/1.73 m2) ?| With Kidney Damage ?| ?Without Kidney Damage+ --------+ --------+ +| ?>90 ?| ?Stage one ?| ? Normal ?+ ---+ ---+ -------+| ?60-89 ?| ?Stage two ?| ? Decreased GFR ? + --+ --+ ------+| ?30-59 ?| ?Stage three ?| ? Stage three ? + --+ --+ ------+| ?15-29 ?| ?Stage four ? | ? Stage four ?+ ---+ ---+ -------+| ?<15 (or dialysis) ? ?| ?Stage five ? | ? Stage five ?+ ---+ ---+ -------+ *Each stage assumes the associated GFR level has been in effect for at least three months. ?Stages 1 to 5, with or without kidney disease, indicate chronic kidney disease. Notes: Determination of stages one and two (with eGFR >59mL/min/1.73 m2) requires estimation of kidney damage for at least three months as defined by structural or functional abnormalities of the kidney, manifested by either:Pathological abnormalities or Markers of kidney damage (including abnormalities in the composition of the blood or urine or abnormalities in imaging tests). Lab Interpretation Abnormal (test code = 14313-7) [facility] WITH [id number] 21:46:00 Test Item Value Reference Range Interpretation Comments WBC (test code = See_Comment [Automated 6690-2) message] The sy stem which generated this result transmitted reference range : 4.30 - 11.10 10*3/?L. The reference range was not used to interpret this result as normal/abnormal . RBC (test code = See_Comment [Automated 789-8) message] The sy stem which generated this result transmitted reference range : 3.93 - 5.25 10*6/?L. The reference range was not used to interpret this result as normal/abnormal . HGB (test code = 15.3 g/dL 11.6-15 H 718-7) HCT (test code = 42.6 % 35.7-45.2 4544-3) MCV (test code = 88.9 fL 80.6-95.5 787-2) MCH (test code = 31.9 pg 25.9-32.8 785-6) MCHC (test code = 35.9 g/dL 31.6-35.1 H 786-4) RDW-SD (test code = 37.4 fL 39-49.9 L 11585-5) RDW-CV (test code = 11.6 % 12-15.5 L 788-0) PLT (test code = See_Comment [Automated 777-3) message] The sy stem which generated this result transmitted reference range : 166 - 358 10*3/ ?L. The reference r adryan was not used to interpret this result as normal/abnormal . MPV (test code = 10.7 fL 9.5-12.9 76322-7) NRBC/100 WBC (test See_Comment [Automat ed code = 9011576199) message] The system which generated this result transmitted reference range : 0.0 - 10.0 /100 WBCs. The refer ence range was not u sed to interpret th is result as normal/abnormal . NRBC x10^3 (test code <0.01 See_Comment [Auto mated = 0446198355) message] The s ystem which generated this result transmitted reference range : 10*3/?L. The reference range was not used to interpret this result as normal/abnormal . GRAN MAT (NEUT) % 42.9 % (test code = 770-8) IMM GRAN % (test code 0.20 % = 9850223760) LYMPH % (test code = 47.0 % 736-9) MONO % (test code = 8.5 % 5905-5) EOS % (test code = 0.8 % 713-8) BASO % (test code = 0.6 % 706-2) GRAN MAT x10^3(ANC) 2.27 10*3/uL 1.88-7.09 (test code = 4957748440) IMM GRAN x10^3 (test <0.03 0-0.06 code = 6994830300) LYMPH x10^3 (test code 2.48 10*3/uL 1.32-3.29 = 731-0) MONO x10^3 (test code 0.45 10*3/uL 0.33-0.92 = 742-7) EOS x10^3 (test code = 0.04 10*3/uL 0.03-0.39 711-2) BASO x10^3 (test code 0.03 10*3/uL 0.01-0.07 = 704-7) Lab Interpretation Abnormal (test code = 36213-4) [facility] MAXIFAC W/O [id number] 13:46:00 Name: TOSHA AGUIRRE [facility] : 1965 Age/S: 53 / F [address] Unit #: [id number] Loc: [place] [address] Phys: Derrek Golden III, MD Acct: [id number] Dis Date: Status: REG CLI PHONE #: [phone] Exam Date: 12/27/2018 1121 FAX #: Reason: CHRONICSINUSITIS EXAMS: CPT: [id number] CT MAXIFAC W/O CONTRAST 87825 CLINICAL HIS TORY: Chronic sinusitis. CT sinuses, unenhanced. Reformatted sagittal and coronal images. COMPARISON: None. Automated exposure control, iterative reconstruction technique, and/or adjustment of mA and/or kV according to patient's size was utilizedfor optimum radiation dose reduction. An unenhanced study of the the sinuses was performed on bone algorithm settings. The frontal sinuses are well- developed and well inflated with no mucoperiosteal thickening. Ethmoid air cells symmetric as well. Normal aeration pattern. Sphenoid sinuses are clear. The maxillary sinuses are well-inflated with no fluid levels are seen with sinusitis. Unerupted wisdom teeth at the posterior margins of the maxillary sinuses at the maxillary ridge. No inflammatory changes in the area can be seen. Temporal bones are well- aerated. Middle ear structures grossly intact. TMJ articulations [...] 1 Signed Report (CONTINUED) Name: TOSHA AGUIRRE [facility] : 1965 Age/S: 53 / F [address] Unit #: [id number] Loc: [place] [address] Phys: Derrek Golden III, MD Acct: [id number] Dis Date: Status: REG CLI PHONE #: [phone] Exam Date: 12/27/2018 1121 FAX #: Reason: CHRONIC SINUSITIS EXAMS: CPT: [id number] CT MAXIFAC W/O CONTRAST 04391 <Continued> CC: Adrián Steevns MD; Derrek Golden III, MD Technologist:Salas Sherman, RT(R)(CT) CTDI: DLP: Trnscb Date/Time: 12/27/2018 (1506) Chris Orig Print D/T: S: 12/27/2018 (6565) PAGE 2 Signed Report"
--- NOTE | 2021-07-15 08:28 | EDPHYS ---
Physician Documentation [facility] Name: Perry Guaman Age: 56 yrs Sex: Female : 1965 Arrival Date: 07/15/2021 Time: 08:19 Bed Waiting Private MD: TAM Physician Chinedu Zhou HPI: 07/15 08:32 This 56 yrs old Female presents to ER via Ambulatory with complaints of Ear Pain. kb 08:32 The patient presents with pain, moderate. The complaints affect the right ear and left kb ear. Onset: The symptoms/episode began/occurred 3 day(s) ago. Modifying factors: The symptoms are alleviated by nothing, the symptoms are aggravated by nothing. Associated signs and symptoms: The patient has no apparent associated signs or symptoms. Severity of symptoms: At their worst the symptoms were moderate in the emergency department the symptoms are unchanged. The patient has not experienced similar symptoms in the past. The patient has not recently seen a physician. Pt reports pain to bilateral ears that started 3 days ago. Has had several infections in the past and this feels the same. Denies fever or drainage. Historical: - Allergies: 08:31 Bactrim; ll1 08:31 Demerol; ll1 08:31 Septra; ll1 - PMHx: 08:31 Renal Disease; ll1 - PSHx: 08:31 hyst.; ll1 - Immunization history:: Client reports receiving the 2nd dose of the Covid vaccine. - Social history:: Smoking status: Patient denies any tobacco usage or history of. ROS: 08:34 Constitutional: Negative for fever, chills, and weight loss. kb 08:34 ENT: Positive for ear pain. 08:34 All other systems are negative. Exam: 08:33 Constitutional: This is a well developed, well nourished patient who is awake, alert, kb and in no acute distress. Head/Face: Normocephalic, atraumatic. Respiratory: Respirations even and unlabored. No increased work of breathing. Talking in full sentences Skin: Warm, dry with normal turgor. Normal color. MS/ Extremity: Pulses equal, no cyanosis. Neurovascular intact. Full, normal range of motion. Neuro: Awake and alert, GCS 15, oriented to person, place, time, and situation. Moves all extremities. Normal gait. Psych: Awake, alert, with orientation to person, place and time. Behavior, mood, and affect are within normal limits. 08:33 ENT: External ear(s): are unremarkable, Ear canal(s): are normal, TM's: bulging, on the right, Examination of the other ear shows no obvious abnormality. Vital Signs: 08:30 BP 125 / 75; Pulse 71; Resp 18; Temp 97.2; Pulse Ox 99% ; Weight 81.65 kg; Height 5 ft. ll1 4 in. (162.56 cm); Pain 8/10; 08:30 Body Mass Index 30.90 (81.65 kg, 162.56 cm) ll1 MDM: 08:27 Patient medically screened. kb 08:33 Data reviewed: vital signs, nurses notes. Data interpreted: Pulse oximetry: on room air kb is 99 %. Interpretation: normal. Counseling: I had a detailed discussion with the patient and/or guardian regarding: the historical points, exam findings, and any diagnostic results supporting the discharge/admit diagnosis, the need for outpatient follow up, a family practitioner, to return to the emergency department if symptoms worsen or persist or if there are any questions or concerns that arise at home. Administered Medications: No medications were administered Disposition: 12:42 Co-signature as Attending Physician, Chinedu Zhou MD I agree with the assessment and félix plan of care. Disposition Summary: 07/15/21 08:27 Discharge Ordered Location: Home kb Condition: Stable kb Diagnosis - Otitis media, unspecified, right ear kb Followup: kb - With: Emergency Department - When: As needed - Reason: Worsening of condition Followup: kb - With: Private Physician - When: 2 - 3 days - Reason: Recheck today's complaints, Continuance of care, Re-evaluation by your physician Discharge Instructions: - Discharge Summary Sheet kb - Otitis Media, Adult, [id number] kb Forms: - Medication Reconciliation Form kb - Thank You Letter kb - Antibiotic Education kb - Prescription Opioid Use kb Prescriptions: - Amoxicillin 875 mg Oral Tablet - take 1 tablet by ORAL route every 12 hours for 10 days; 20 tablet; Refills: 0, kb Product Selection Permitted Signatures: Jaclyn Simpson, REGISTERED DIET TECHNICIAN-C JAMESON-Chinedu Koch MD MD cha Lewis, Lynsay, RN RN ll1
--- NOTE | 2021-07-15 08:41 | ER ---
Nurse's Notes [facility] Name: Perry Guaman Age: 56 yrs Sex: Female : 1965 Arrival Date: 07/15/2021 Time: 08:19 Bed Waiting Private MD: Diagnosis: Otitis media, unspecified, right ear Presentation: 07/15 08:30 Chief complaint: Patient states: Ear pains for 3 days. No fever or drainage. ll1 Coronavirus screen: Vaccine status: Patient reports receiving the 2nd dose of the covid vaccine. Client denies travel out of the [place] in the last 14 days. At this time, the client does not indicate any symptoms associated with coronavirus-19. Ebola Screen: Patient denies travel to an Ebola-affected area in the 21 days before illness onset. Initial Sepsis Screen: Does the patient meet any 2 criteria? No. Patient's initial sepsis screen is negative. Does the patient have a suspected source of infection? Yes: Other: ear. Risk Assessment: Do you want to hurt yourself or someone else? Patient reports no desire to harm self or others. Onset of symptoms is unknown. 08:30 Method Of Arrival: Ambulatory ll1 08:30 Acuity: SRINIVAS 5 ll1 Triage Assessment: 08:31 General: Appears in no apparent distress. Behavior is calm, cooperative, appropriate ll1 for age. Pain: Complains of pain in ears. EENT: Reports bilateral ears. Historical: - Allergies: 08:31 Bactrim; ll1 08:31 Demerol; ll1 08:31 Septra; ll1 - PMHx: 08:31 Renal Disease; ll1 - PSHx: 08:31 hyst.; ll1 - Immunization history:: Client reports receiving the 2nd dose of the Covid vaccine. - Social history:: Smoking status: Patient denies any tobacco usage or history of. Screenin:31 Abuse screen: Denies threats or abuse. Nutritional screening: No deficits noted. ll1 Tuberculosis screening: No symptoms or risk factors identified. Fall Risk Total Mayberry Fall Scale indicates No Risk (0-24 pts). Vital Signs: 08:30 BP 125 / 75; Pulse 71; Resp 18; Temp 97.2; Pulse Ox 99% ; Weight 81.65 kg; Height 5 ft. ll1 4 in. (162.56 cm); Pain 01/11; 08:30 Body Mass Index 30.90 (81.65 kg, 162.56 cm) ll1 ED Course: 08:19 Patient arrived in ED. rg4 08:21 [facility]C [facility] roc[facility] 08:21 Chinedu Zhou MD is Attending Physician. kb 08:31 Triage completed. ll1 08:31 Arm band placed on Patient placed in an exam room, on a stretcher. ll1 08:32 Patient has correct armband on for positive identification. Cardiac monitoring not ll1 applicable on this patient. 08:32 No provider procedures requiring assistance completed. Patient did not have IV access ll1 during this emergency room visit. Administered Medications: No medications were administered Outcome: 08:27 Discharge ordered by . kb 08:32 Discharged to home ambulatory. ll1 08:32 Condition: stable 08:32 Discharge instructions given to patient, Instructed on discharge instructions, follow up and referral plans. medication usage, Demonstrated understanding of instructions, follow-up care, medications, Prescriptions given X 1. 08:40 Patient left the ED. ll1 Signatures: Jaclyn Simpson FNP-C FNP-Ckb Garcia, Rubi rg4 Rhys Dillon, RN RN ll1
[2021-07-15 08:45] VITALS: BP 125/75; TEMP 97.2; O2SAT 99
== END 2021-07-15 08:40 | disposition home or self-care (01) ==
LOC: ER 08:16
DX: H66.91 Otitis media, unspecified, right ear (principal)
CPT/HCPCS: 99282

== ENCOUNTER 2022-02-13 07:43 | Emergency (ER) | payer BC ==
--- OUTSIDE RECORDS SUMMARY | 2022-02-13 07:46 | XMS REPORT | Continuity of Care Document ---
:1965 Author Organization [facility] t Address [address] [place] [address] Care Team Providers Name Role Phone Adrián Stevens Primary Care Physician Ac Hardy Attending Clinician Racquel Leslie Attending Clinician Doctor Unassigned, [place] Attending Clinician Unavailable Payers Payer Name Policy Type Policy Number Effective Date Expiration Date S ource Problems Condition Condition Condition Status Onset Resolution Last Treating Co mments Source Name Details Category Date Date Treatment Clinician Date Acute pain Acute pain Disease Active U nivers of right of right 3-16 ity of knee knee 00:00: [place] 00 Medical Branch Allergies, Adverse Reactions, Alerts Allergy Allergy Status Severity Reaction(s) Onset Inactive Treating Comm ents Source Name Type Date Date Clinician Sulfa Propensi Active Hives 2016-06 [facility] (Sulfona [...] 00:00: [place] reaction 00 Medical s Branch Social History Social Habit Start Date Stop Date Quantity Comments Source Exposure to 2022-01-17 2022-01-27 Not sure [facility] SARS-CoV-2 (event) 00:00:00 08:54:00 Medica l Branch Alcohol intake 2022-01-27 2022-01-27 0 /d [facility] 00:00:00 00:00:00 Medical Branch Sex Assigned At [birth year] [facility] 00:00:00 00:00:00 Medical Branch Smoking Status Start Date Stop Date Source Never smoked tobacco [facility] Medications Ordered Filled Start Stop Current Ordering Indication Dosage Frequency Signature Comments Components Source Medication Medication Date Date Medication? Clinician (SIG) Name Name ONDANSETRON Yes [id number] 4mg Take 1 [facility] 4 mg 2-03 tablet by ity of disintegrat 00:00: mouth [place] ing tablet 00 every 8 Medica l (eight) Branch hours as needed for Nausea and Vomiting (N/V). methylPREDN Yes 84mg Take 21 Uni vers ISolone 3-16 tablets by ity of (MEDROL, 00:00: mouth [place] THALIA,) 4 mg 00 SEE-INSTRU Med ical tablets CTIONS. Branch follow package directions Vital Signs Vital Name Observation Time Observation Value Comments Source Systolic blood 2022-01-27 13:59:00 130 [facility]Hg[facility] Diastolic blood 2022-01-27 13:59:00 80 mm[Hg] [facility] Heart rate 2022-01-27 13:59:00 74 /min [facility] Body height 2022-01-27 13:59:00 162.6 cm [facility] Body weight 2022-01-27 13:59:00 81.647 kg [facility] BMI 2022-01-27 13:59:00 30.90 kg/m2 [facility] Procedures This patient has no known procedures. Encounters Start End Encounter Admission Attending Care Care Encounter Source Date/Time Date/Time Type Type Clinicians Facility Department ID 2022-01-27 2022-01-27 Office ERON Gaona [id number] [facility] 09:00:00 09:47:57 Visit [facility] [id number] it y of ROSE [id number] Federico as AARON?BLEA [id number] Az diclulu GOMEZ [address] [place] [address] MEDICAL OFFICE BUILDING 2019-07-07 2019-07-07 Emergency Karla [facility] [id number] 14:28:25 17:05:00 Racquel Jeffries [id number] [place] [id number] [place] [id number] 2019-07-07 2019-07-07 Orders Doctor WALE [id number] 00:00:00 00:00:00 Only Unassigned, LORI [id number] [place] [address]686 [id number] Results Test Description Test Time Test Comments Results Result [facility] e Comments - CT MAXIFAC W/O 2018-12-27 Name: AGUIRRETOSHA CONTRAST 13:46:00 [facility] : 1965 Age/S: 53 / F [address] Unit #: [id number] Loc: [place] [address] Phys: Derrek Golden III, MD Acct: [id number] Dis Date: Status: REG CLI PHONE #: [phone] Exam Date: 12/27/2018 1123 FAX #: Reason: CHRONIC SINUSITIS EXAMS: CPT: [id number] CT MAXIFAC W/O CONTRAST 95011 CLINICAL HISTORY: Chronic sinusitis. CT sinuses, unenhanced. [...] 1 Signed Report (CONTINUED) Name: TOSHA AGUIRRE [place] : 1965 Age/S: 53 / F [address] Unit #: [id number] Loc: [place] [address] Phys: Derrek Golden III, MD Acct: [id number] Dis Date: Status: REG CLI PHONE #: [phone] Exam Date: 12/27/2018 1121 FAX #: Reason: CHRONIC SINUSITIS EXAMS: CPT: [id number] CT MAXIFAC W/O CONTRAST 41530 (Continued) CC: Adrián Stevens MD; Derrek Golden III, MD Technologist:Salas Sherman, RT(R)(CT) CTDI: DLP: Trnscb Date/Time: 12/27/2018 (1346) [email or web address] Orig Print D/T: S: 12/27/2018 (7682) PAGE 2 Signed Report
[2022-02-13] MEDS ORDERED: METHYLPREDNISOLONE 125 MG INJ ONE (08:30)
[2022-02-13] MEDS ORDERED: ASPIRIN 81 MG CHEWABLE TABLET ONE (08:30)
[2022-02-13] MEDS ORDERED: predniSONE 20 MG TAB ONE (08:30)
[2022-02-13] MEDS ORDERED: AZITHROMYCIN 250 MG TAB ONE (08:31)
[2022-02-13] MEDS ORDERED: NA CHLORIDE 0.9% 1,000 ML ONE (08:31)
[2022-02-13] MEDS ORDERED: FAMOTIDINE 20 MG/2 ML VIAL IV ONE (08:31)
[2022-02-13 08:40] LABS: Absolute Lymphocytes (CBC) 1.6 K/uL (0.7-4.9); Hematocrit 39.8 % (36.0-45.0); Lymphocytes % 32.6 % (15.3-44.8); MCV 90.3 fL (80-100); RBC Red Blood Cell Count 4.41 M/uL (3.86-4.86)
--- NOTE | 2022-02-13 09:14 | RAD REPORT ---
EXAM DESCRIPTION: RAD - Chest Single View - 02/13/2022 8:52 am CLINICAL HISTORY: COUGH Chest pain. COMPARISON: Chest Pa And Lat (2 Views) dated 06/29/2016; CHEST SINGLE VIEW dated 06/13/2015; CHEST SIN GLE VIEW dated 09/07/2014; CHEST SINGLE VIEW dated 05/25/2010 FINDINGS: Portable technique limits examination quality. The lungs are grossly clear. The heart is normal in size. No displaced fractures. IMPRESSION: No acute intrathoracic process suspected.
[2022-02-13 09:43] LABS: Albumin 3.5 g/dL (3.4-5.0); Bilirubin Total 0.6 mg/dL (0.2-1.0); Potassium 4.1 mmol/L (3.5-5.1); Protein, Total 7.6 g/dL (6.4-8.2)
[2022-02-13] MEDS ORDERED: ONDANSETRON 4 MG/2 ML VIAL ONE (09:54)
--- NOTE | 2022-02-13 10:05 | RAD REPORT ---
EXAM DESCRIPTION: CT - Chest For Pe Angio - 02/13/2022 9:53 am CLINICAL HISTORY: Chest pain. cp COMPARISON: No comparisonsNo comparisons TECHNIQUE: CT angiogram of the pulmonary arteries was performed with MIP. All CT scans are performed using dose optimization technique as appropriate and may include automated exposure control or mA/KV adjustment according to patient size. FINDINGS: No evidence of pulmonary thromboembolism. No acute aortic finding demonstrated. Aberrant right subclavian artery, normal variant. The lungs are clear. No significant pericardial or pleural fluid. No concerning bony finding. IMPRESSION: No evidence of pulmonary thromboembolism. No acute lung findings.
--- NOTE | 2022-02-13 10:33 | EDPHYS ---
Physician Documentation [facility] Name: Perry Guaman Age: 56 yrs Sex: Female : 1965 Arrival Date: 02/13/2022 Time: 07:45 Bed 6 Private MD: ED Physician Chinedu Zhou HPI: 02/13 08:21 This 56 yrs old Female presents to ER via Ambulatory with complaints of félix Covid+, Cough, Chest Pain, Breathing Difficulty. 08:21 The patient or guardian reports cough, difficulty breathing. Onset: The félix symptoms/episode began/occurred 6 day(s) ago. Severity of symptoms: At their worst the symptoms were mild, in the emergency department the symptoms are unchanged. Modifying factors: The symptoms are alleviated by nothing, the symptoms are aggravated by nothing. The patient has not experienced similar symptoms in the past. Historical: - Allergies: 07:56 Bactrim; aa5 07:56 Demerol; aa5 07:56 Septra; aa5 - Home Meds: 07:59 Flonase Nasal [Active]; Singulair Oral [Active]; jg9 - PMHx: 07:56 None; aa5 - PSHx: 07:56 hyst.; Heart Ablation; aa5 - Immunization history:: Adult Immunizations unknown. - Social history:: Smoking status: Patient denies any tobacco usage or history of. ROS: 08:25 Constitutional: Negative for fever, chills, and weight loss, Eyes: Negative for injury, félix pain, redness, and discharge, ENT: Negative for injury, pain, and discharge, Neck: Negative for injury, pain, and swelling, Cardiovascular: Negative for chest pain, palpitations, and edema, Abdomen/GI: Negative for abdominal pain, nausea, vomiting, diarrhea, and constipation, Back: Negative for injury and pain, : Negative for injury, bleeding, discharge, and swelling, MS/Extremity: Negative for injury and deformity, Skin: Negative for injury, rash, and discoloration, Neuro: Negative for headache, weakness, numbness, tingling, and seizure, Psych: Negative for depression, anxiety, suicide ideation, homicidal ideation, and hallucinations, Allergy/Immunology: Negative for hives, rash, and allergies, Endocrine: Negative for neck swelling, polydipsia, polyuria, polyphagia, and marked weight changes, Hematologic/Lymphatic: Negative for swollen nodes, abnormal bleeding, and unusual bruising. 08:25 Respiratory: Positive for cough, shortness of breath, at rest. Exam: 08:25 Constitutional: This is a well developed, well nourished patient who is awake, alert, félix and in no acute distress. Head/Face: Normocephalic, atraumatic. Eyes: Pupils equal round and reactive to light, extra-ocular motions intact. Lids and lashes normal. Conjunctiva and sclera are non-icteric and not injected. Cornea within normal limits. Periorbital areas with no swelling, redness, or edema. ENT: Nares patent. No nasal discharge, no septal abnormalities noted. Tympanic membranes are normal and external auditory canals are clear. Oropharynx with no redness, swelling, or masses, exudates, or evidence of obstruction, uvula midline. Mucous membranes moist. Neck: Trachea midline, no thyromegaly or masses palpated, and no cervical lymphadenopathy. Supple, full range of motion without nuchal rigidity, or vertebral point tenderness. No Meningismus. Chest/axilla: Normal chest wall appearance and motion. Nontender with no deformity. No lesions are appreciated. Cardiovascular: Regular rate and rhythm with a normal S1 and S2. No gallops, murmurs, or rubs. Normal PMI, no JVD. No pulse deficits. Abdomen/GI: Soft, non-tender, with normal bowel sounds. No distension or tympany. No guarding or rebound. No evidence of tenderness throughout. Back: No spinal tenderness. No costovertebral tenderness. Full range of motion. Female : Normal external genitalia. Skin: Warm, dry with normal turgor. Normal color with no rashes, no lesions, and no evidence of cellulitis. MS/ Extremity: Pulses equal, no cyanosis. Neurovascular intact. Full, normal range of motion. Neuro: Awake and alert, GCS 15, oriented to person, place, time, and situation. Cranial nerves II-XII grossly intact. Motor strength 5/5 in all extremities. Sensory grossly intact. Cerebellar exam normal. Normal gait. Psych: Awake, alert, with orientation to person, place and time. Behavior, mood, and affect are within normal limits. 08:25 ECG was reviewed by the Attending Physician. 08:25 Respiratory: the patient does not display signs of respiratory distress, Respirations: normal, no acute changes, Breath sounds: bronchial sounds, that are mild, are scattered, rhonchi, that are mild, are scattered, Respiratory rate: 18 Vital Signs: 07:45 BP 122 / 73; Pulse 80; Resp 18 S; Pulse Ox 100% on R/A; jg9 07:53 BP 122 / 73; Pulse 70; Resp 18 S; Temp 98.5(O); Pulse Ox 100% on R/A; Weight 81.65 kg aa5 (R); Height 5 ft. 4 in. (162.56 cm) (R); 08:00 BP 109 / 73; Pulse 67; Resp 12 S; Pulse Ox 100% on R/A; Pain 7/10; jg9 08:45 BP 117 / 72; Pulse 66; Resp 14 S; Pulse Ox 100% on R/A; Pain 5/10; jg9 09:30 BP 112 / 76; Pulse 65; Resp 13 S; Pulse Ox 100% on R/A; Pain 5/10; jg9 10:15 BP 95 / 77; Pulse 69; Resp 15 S; Pulse Ox 100% ; Pain 3/10; jg9 07:53 Body Mass Index 30.90 (81.65 kg, 162.56 cm) aa5 MDM: 07:48 Patient medically screened. [facility] 08:27 Differential diagnosis: viral Infection, bacterial infection, URI, bronchitis, félix pneumonia. Differential Diagnosis: Bronchitis Influenza Upper Respiratory Infection Sinusitis Pharyngitis Asthma Exacerbation Viral Syndrome Pneumonia. Data reviewed: vital signs, nurses notes, lab test result(s), EKG, radiologic studies, plain films. Data interpreted: vehicle monitor technician: rate is 70 beats/min, rhythm is regular, Pulse oximetry: on room air is 100 %. Test interpretation: by ED physician or midlevel provider: ECG, plain radiologic studies. Counseling: I had a detailed discussion with the patient and/or guardian regarding: the historical points, exam findings, and any diagnostic results supporting the discharge/admit diagnosis, lab results, radiology results, the need for outpatient follow up, for definitive care, a family practitioner. 02/13 08:11 Order name: CBC with Diff; Complete Time: 08:53 félix 02/13 08:11 Order name: Comprehensive Metabolic Panel [facility] 02/13 08:11 Order name: D-Dimer; Complete Time: 08:53 [facility] 02/13 08:11 Order name: Chest Single View XRAY; Complete Time: 09:25 [facility] 02/13 08:11 Order name: Troponin High Sensitivity [facility] 02/13 08:54 Order name: CT Chest For PE Angio; Complete Time: 10:33 [facility] 02/13 08:11 Order name: EKG; Complete Time: 08:12 [facility] 02/13 08:11 Order name: EKG - Nurse/Tech; Complete Time: 08:17 [facility] EC:25 Rate is 66 beats/min. Rhythm is regular. QRS [place] is Normal. MI interval is normal. QRS félix interval is normal. QT interval is normal. No Q waves. T waves are Normal. No ST changes noted. Clinical impression: Normal ECG and No evidence of ischemia. Interpreted by me. Reviewed by me. Administered Medications: 08:35 Drug: NS 0.9% 1000 ml Route: IV; Rate: 1 bolus; Site: left antecubital; jg9 10:02 Follow up: IV Status: Completed infusion; IV Intake: 1000ml jg9 08:35 Drug: Pepcid (famotidine) 40 mg Route: IVP; Site: left antecubital; jg9 09:00 Follow up: Response: No adverse reaction jg9 08:36 Drug: SOLU-Medrol (methylPrednisoLONE) 125 mg Route: IVP; Site: left antecubital; jg9 09:25 Follow up: Response: No adverse reaction jg9 08:39 Drug: predniSONE 60 mg Route: PO; jg9 09:25 Follow up: Response: No adverse reaction jg9 08:39 Drug: Zithromax (azithromycin) 500 mg Route: PO; jg9 09:25 Follow up: Response: No adverse reaction jg9 08:39 Drug: Aspirin Chewable Tablet 324 mg Route: PO; jg9 09:24 Follow up: Response: No adverse reaction jg9 09:48 Drug: Zofran (Ondansetron) 4 mg Route: IVP; Site: left antecubital; jg9 10:23 Follow up: Response: No adverse reaction; Nausea is decreased jg9 Disposition Summary: 02/13/22 10:33 Discharge Ordered Location: Home félix Problem: new félix Symptoms: have improved félix Condition: Stable félix Diagnosis - Acute upper respiratory infection, unspecified félix - Coronavirus infection, unspecified félix - SARS-associated coronavirus as the cause of diseases classified elsewhere [facility] Followup: félix - With: Private Physician - When: 2 - 3 days - Reason: Recheck today's complaints, Continuance of care, Re-evaluation by your physician Discharge Instructions: - Discharge Summary Sheet félix - Upper Respiratory Infection, Adult félix - Cool Mist Vaporizer félix - Aspirin and Your Heart [facility] - COVID-19 [facility] - 10 Things You Can Do to Manage Your COVID-19 Symptoms at Home - [facility] - COVID-19: Quarantine vs. Isolation - [facility] - Prevent the Spread of COVID-19 if You Are Sick - [facility] Forms: - Medication Reconciliation Form [facility] - Thank You Letter [facility] - Antibiotic Education [facility] - Prescription Opioid Use [facility] Prescriptions: - budesonide 180 mcg/actuation Inhalation aerosol powdr breath activated - inhale 1 puff by INHALATION route 2 times per day; 1 Pump; Refills: 0, Product félix Selection Permitted - Pepcid 20 mg Oral Tablet - take 1 tablet by ORAL route every 12 hours for 21 days; 42 tablet; Refills: 0, [facility] Product Selection Permitted - Prednisone 20 mg Oral Tablet - take 3 tablets by ORAL route once daily for 5 days; 15 tablet; Refills: 0, [facility] Product Selection Permitted - Tessalon Perles 100 mg Oral Capsule - take 2 capsule by ORAL route every 8 hours As needed; 45 capsule; Refills: 0, [facility] Product Selection Permitted - Zithromax Z-Kane 250 mg Oral Tablet - take 1 tablet by ORAL route as directed for 5 days Day 1 - take two (2) tablets [facility] one time. Day 2, 3, 4 , 5 take one (1) tablet once daily.; 6 tablet; Refills: 0, Product Selection Permitted Signatures: Dispatcher [employer] Chinedu Romo MD MD cha Calderon, Audri RN RN aa5 Cecilia Pham RN RN jg9 Corrections: (The following items were deleted from the chart) 07:57 07:56 PMHx: Renal Disease; aa5 aa5
--- NOTE | 2022-02-13 10:33 | ER ---
Nurse's Notes [facility] Name: Perry Guaman Age: 56 yrs Sex: Female : 1965 Arrival Date: 02/13/2022 Time: 07:45 Bed 6 Private MD: Diagnosis: Acute upper respiratory infection, unspecified;Coronavirus infection, unspecified;SARS-associated coronavirus as the cause of diseases classified elsewhere Presentation: 02/13 07:53 Chief complaint: Patient states: covid positive on , went to urgent care and aa5 prescribed Lagevrio. Pt c/o chest pain and SOB since yesterday. Coronavirus screen: cough unrelated to allergies, shortness of breath, Client reports previous positive COVID test result. Ebola Screen: Patient denies travel to an Ebola-affected area in the 21 days before illness onset. Initial Sepsis Screen: Does the patient meet any 2 criteria? No. Patient's initial sepsis screen is negative. Does the patient have a suspected source of infection? Yes:. Risk Assessment: Do you want to hurt yourself or someone else? Patient reports no desire to harm self or others. Onset of symptoms was February 2022. 07:53 Acuity: SRINIVAS 3 aa5 07:53 Method Of Arrival: Ambulatory aa5 Triage Assessment: 07:59 General: Appears uncomfortable, Behavior is calm, cooperative. Pain: Complains of pain jg9 in chest. Cardiovascular: Reports chest pain, Rhythm is sinus rhythm. Historical: - Allergies: 07:56 Bactrim; aa5 07:56 Demerol; aa5 07:56 Septra; aa5 - Home Meds: 07:59 Flonase Nasal [Active]; Singulair Oral [Active]; jg9 - PMHx: 07:56 None; aa5 - PSHx: 07:56 hyst.; Heart Ablation; aa5 - Immunization history:: Adult Immunizations unknown. - Social history:: Smoking status: Patient denies any tobacco usage or history of. Screenin:58 Abuse screen: Denies threats or abuse. Denies injuries from another. Nutritional jg9 screening: No deficits noted. Tuberculosis screening: No symptoms or risk factors identified. Fall Risk None identified. Assessment: 07:59 Pain: Pain does not radiate. jg9 08:00 Pain: Pain began 2-3 days ago. jg9 09:00 Reassessment: Patient and/or family updated on plan of care and expected duration. Pain jg9 level reassessed. Patient is alert, oriented x 3, equal unlabored respirations, skin warm/dry/pink. 09:24 Reassessment: smith is now 5/10 Patient states feeling better. Patient states symptoms jg9 have improved. 10:00 Reassessment: Patient and/or family updated on plan of care and expected duration. Pain jg9 level reassessed. Patient is alert, oriented x 3, equal unlabored respirations, skin warm/dry/pink. Patient states feeling better. Patient states symptoms have improved. Vital Signs: 07:45 BP 122 / 73; Pulse 80; Resp 18 S; Pulse Ox 100% on R/A; jg9 07:53 BP 122 / 73; Pulse 70; Resp 18 S; Temp 98.5(O); Pulse Ox 100% on R/A; Weight 81.65 kg aa5 (R); Height 5 ft. 4 in. (162.56 cm) (R); 08:00 BP 109 / 73; Pulse 67; Resp 12 S; Pulse Ox 100% on R/A; Pain 7/10; jg9 08:45 BP 117 / 72; Pulse 66; Resp 14 S; Pulse Ox 100% on R/A; Pain 5/10; jg9 09:30 BP 112 / 76; Pulse 65; Resp 13 S; Pulse Ox 100% on R/A; Pain 5/10; jg9 10:15 BP 95 / 77; Pulse 69; Resp 15 S; Pulse Ox 100% ; Pain 3/10; jg9 07:53 Body Mass Index 30.90 (81.65 kg, 162.56 cm) aa5 ED Course: 07:45 Patient arrived in ED. rg4 07:47 Cecilia Pham, NICHO is Primary Nurse. jg9 07:48 Chinedu Zhou MD is Attending Physician. félix 07:53 Arm band placed on Patient placed in an exam room, on a stretcher. aa5 07:56 Triage completed. aa5 07:58 Patient has correct armband on for positive identification. Bed in low position. Call jg9 light in reach. Side rails up X 1. Client placed on continuous cardiac and pulse oximetry monitoring. NIBP monitoring applied. 07:59 Patient maintains SpO2 saturation greater than 95% on room air. jg9 08:28 Inserted saline lock: 20 gauge in left antecubital area, using aseptic technique. Blood jg9 collected. 08:54 Chest Single View XRAY In Process Unspecified. EDMS 09:55 CT Chest For PE Angio In Process Unspecified. EDMS 10:24 No apparent distress. Resting quietly. Awaiting lab results, Awaiting radiology jg9 results. Awaiting disposition. 10:46 No provider procedures requiring assistance completed. jg9 10:47 IV discontinued. jg9 Administered Medications: 08:35 Drug: NS 0.9% 1000 ml Route: IV; Rate: 1 bolus; Site: left antecubital; jg9 10:02 Follow up: IV Status: Completed infusion; IV Intake: 1000ml jg9 08:35 Drug: Pepcid (famotidine) 40 mg Route: IVP; Site: left antecubital; jg9 09:00 Follow up: Response: No adverse reaction jg9 08:36 Drug: SOLU-Medrol (methylPrednisoLONE) 125 mg Route: IVP; Site: left antecubital; jg9 09:25 Follow up: Response: No adverse reaction jg9 08:39 Drug: predniSONE 60 mg Route: PO; jg9 09:25 Follow up: Response: No adverse reaction jg9 08:39 Drug: Zithromax (azithromycin) 500 mg Route: PO; jg9 09:25 Follow up: Response: No adverse reaction jg9 08:39 Drug: Aspirin Chewable Tablet 324 mg Route: PO; jg9 09:24 Follow up: Response: No adverse reaction jg9 09:48 Drug: Zofran (Ondansetron) 4 mg Route: IVP; Site: left antecubital; jg9 10:23 Follow up: Response: No adverse reaction; Nausea is decreased jg9 Medication: 10:47 VIS not applicable for this client. jg9 Intake: 10:02 IV: 1000ml; Total: 1000ml. jg9 Outcome: 10:33 Discharge ordered by MD. heard 10:46 Discharged to home ambulatory. jg9 10:46 Condition: improved 10:46 Discharge instructions given to patient, Instructed on discharge instructions, follow up and referral plans. Demonstrated understanding of instructions, follow-up care, Prescriptions given X 5 10:47 Patient left the ED. jg9 Signatures: Dispatcher [employer] Chinedu Romo MD MD cha Calderon, Audri RN RN aa5 María Norris4 Cecilia Pham RN RN jg9 Corrections: (The following items were deleted from the chart) 07:57 07:56 PMHx: Renal Disease; jeannine paez
[2022-02-13 11:11] VITALS: O2SAT 100
[2022-02-13 11:17] LABS: Troponin High Sensitivity 11.8 pg/mL (<58.9)
[2022-02-13 11:19] VITALS: TEMP 98.5
[2022-02-13 11:37] VITALS: BP 95/77
--- NOTE | 2022-02-14 15:42 | EKG ---
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
== END 2022-02-13 10:47 | disposition home or self-care (01) ==
LOC: ER 07:43
DX: U07.1 COVID-19 (principal); J06.9 Acute upper respiratory infection, unspecified; Z88.1 Allergy status to other antibiotic agents; Z88.5 Allergy status to narcotic agent; Z88.8 Allergy status to other drugs, medicaments and biological substances
CPT/HCPCS: 96361; 93005; 85025; 36415; 85379; 84484; 80053; 71275; 71045; 96375; 96374; 99285; Q9967; J7512; J7030; J2930; J2405

== ENCOUNTER → 2023-06-11 | Emergency (ER) | payer OTHER ==
[~2023-06-11] MED LIST: FAMOTIDINE 20 MG TAB ONE; PANTOPRAZOLE 40MG TABLET PO ONE; SUCRALFATE 1 GM TABLET ONE
--- OUTSIDE RECORDS SUMMARY | 2023-06-11 16:57 | XMS REPORT | Continuity of Care Document ---
Author Name Unknown Address [address] [place] [address] [facility] thconnect Address [address] [place] [address] Care Team Providers Care Juvenile Corrections Officer Name Role Phone Adrián Stevens Primary Care Physician [phone] VY GAONA Attending Clinician Unavailable Vy Hardy Attending Clinician [phone] Xavier Leslie Attending Clinician [phone] XAVIER CLEMENT Attending Clinician Unavailable Doctor Unassigned, [place] Attending Clinician U navailable Payers Payer Name Policy Type Policy Number Effective Date Expirati on Date Source [facility] - OUT OF STATE [id number] 2018 00:00:00 [employer] O [id number] 2016 00:00:00 2017 00:00:00 Problems Condition Name Condition Details Condition Category Status Onset Date Resolution Date Last Treatment Date Treating Clinician Comments Source Acute pain of right knee Acute pain of right knee Disease Active 16 00:00: 00 [facility] Allergies, Adverse Reactions, Alerts Allergy Name Allergy Type Status Severity Reaction(s) Onset Date Inactive Date Treating Clinician Comments Source Sulfa (Sulfona mide Antibiot ics) Propensi ty to adverse reaction s Active Hives 2016-06 00:00: 00 [facility] Meperidi ne Hcl Propensi ty to adverse reaction s Active Nausea and/or Vomiting 08-17 00:00: 00 [facility] Septra I.V. Propensi ty to adverse reaction s Active Nausea and/or Vomiting 08-17 00:00: 00 [facility] Social History Social Habit Start Date Stop Date Quantity Comments Source Exposure to SARS-CoV-2 (event) 2022-01-17 00:00:00 2022-01-27 08:54:00 Not sure [facility] Alcohol intake 2022-01-27 00:00:00 2022-01-27 00:00:00 0 /d [facility] Sex Ass[birth year] At 1965 00:00:00 1965 00:00:00 [facility] Smoking Status Start Date Stop Date Source Never smoked tobacco [facility] Medications Ordered Medication Name Filled Medication Name Start Date Stop Date Current Medication? Ordering Clinician Indication Dosage Frequency Signature (SIG) Comments Components Source ONDANSETRON 4 mg disintegrat ing tablet 07-07 00:00: 00 Yes [id number] 4mg Take 1 tablet by mouth every 8 (eight) hours as needed for Nausea and Vomiting (N/V). [facility] methylPREDN ISolone (MEDROL, THALIA,) 4 mg tablets 08-17 00:00: 00 Yes 84mg Take 21 tablets by mouth SEE-INSTRU CTIONS. follow package directions [facility] Vital Signs Vital Name Observation Time Observation Value Comments S mara Systolic blood pressure 2022-01-27 13:59:00 130 mm[Hg] [facility] Diastolic blood pressure 2022-01-27 13:59:00 80 mm[Hg] [facility] Heart rate 2022-01-27 13:59:00 74 [facility] height 2022-01-27 13:59:00 162.6 cm [facility] Body weight 2022-01-27 13:59:00 81.647 kg [facility] BMI 2022-01-27 13:59:00 30.90 kg/m2 [facility] Encounters Start Date/Time End Date/Time Encounter Type Admission Type Attending [facility] Care Facility Care Department Encounter ID Source 2022-01-27 09:00:00 2022-01-27 09:47:57 Outpatient R VY GAONA [facility] [id number] [facility] 2022-01-27 09:00:00 2022-01-27 09:47:57 Office Visit Vy Gaona [facility] [id number] [facility] 2019-07-07 14:28:25 2019-07-07 17:05:00 Emergency Xavier Clement [facility] [id number] 2019-07-07 14:28:25 2019-07-07 17:05:00 Emergency Xavier Clement [facility] [id number] [id number] [facility] 2019-07-07 14:28:25 2019-07-07 17:05:00 Emergency X XAVIER CLEMENT [facility] ERT [id number] [facility] 2019-07-07 00:00:00 2019-07-07 00:00:00 Orders Only Doctor Unassigned, [place] [facility] [id number] [id number] [id number] [facility] 2019-07-07 00:00:00 2019-07-07 00:00:00 Orders Only Doctor Unassigned, [place] [facility] [id number] Results Test Description Test Time Test Comments Results Resul t Comments Source - CT MAXIFAC W/O CONTRAST 2018-12-27 13:46:00 Name: TOSHA AGUIRRE [place] : 1965 Age/S: 53 / F [id number] Unit #: [id number] Loc: [place] [address] Phys: Derrek Golden III, MD Acct: [id number] Dis Date: Status: REG CLI PHONE #: [phone] Exam Date: 12/27/2018 1121 FAX #: Reason: CHRONIC SINUSITIS EXAMS: CPT: [id number] CT MAXIFAC W/O CONTRAST 14261 CLINICAL HISTORY: Chronic sinusitis. CT sinuses, unenhanced. [...] 1 Signed Report (CONTINUED) Name: TOSHA AGUIRRE : 1965 Age/S: 53 / F [id number] Unit #: [id number] Loc: [place] [address] Phys: Derrek Golden III, MD Acct: [id number] Dis Date: Status: REG CLI PHONE #: [phone] Exam Date: 12/27/2018 1121 FAX #: Reason: CHRONIC SINUSITIS EXAMS: CPT: [id number] CT MAXIFAC W/O CONTRAST 95444 (Continued) CC: Adrián Stevens MD; Derrek Golden III, MD Technologist:Salas Sherman, RT(R)(CT) CTDI: DLP: Trnscb Date/Time: 12/27/2018 (4773) Chris Orig Print D/T: S: 12/27/2018 (6640) PAGE 2 Signed Report
--- NOTE | 2023-06-11 18:10 | RAD REPORT ---
EXAM DESCRIPTION: RAD - Chest Pa And Lat (2 Views) - 06/11/2023 5:32 pm CLINICAL HISTORY: COUGH COMPARISON: Chest Single View dated 02/13/2022; Chest Pa And Lat (2 Views) dated 06/29/2016; CHEST SIN GLE VIEW dated 06/13/2015; CHEST SINGLE VIEW dated 09/07/2014 TECHNIQUE: PA and lateral views of the chest were obtained. FINDINGS: The lungs are clear. Heart size is normal and central vasculature is within normal limits. No pleural effusion or pneumothorax seen. No acute bony finding noted. IMPRESSION: No acute cardiopulmonary process.
--- NOTE | 2023-06-11 18:39 | EDPHYS ---
Physician Documentation [facility] Name: Perry Guaman Age: 58 yrs Sex: Female : 1965 Arrival Date: 06/11/2023 Time: 16:54 Bed DX4 Private MD: ED Physician Diogenes Barba HPI: 06/11 18:40 This 58 yrs old Female presents to ER via Ambulatory with complaints of Chest Pain, snw Cough. 18:40 Onset: The symptoms/episode began/occurred gradually, and became persistent. Associated snw signs and symptoms: Pertinent positives: chest pain, cough. The patient has experienced similar episodes in the past. The patient has not recently seen a physician. Hx of GERD, does not take anything for s/s. Historical: - Allergies: 17:06 Demerol; bp 17:06 Bactrim; bp 17:06 Febra; bp - PSHx: 17:06 Heart ablation; hyst.; bp - Immunization history:: Adult Immunizations up to date. - Social history:: Smoking status: Patient denies any tobacco usage or history of. ROS: 18:40 Constitutional: Negative for fever, chills, and weight loss, Eyes: Negative for injury, snw pain, redness, and discharge, ENT: Negative for injury, pain, and discharge, Neck: Negative for injury, pain, and swelling, Cardiovascular: Negative for chest pain, palpitations, and edema, Abdomen/GI: Negative for abdominal pain, nausea, vomiting, diarrhea, and constipation, Back: Negative for injury and pain, : Negative for injury, bleeding, discharge, and swelling, MS/Extremity: Negative for injury and deformity, Skin: Negative for injury, rash, and discoloration, Neuro: Negative for headache, weakness, numbness, tingling, and seizure, Psych: Negative for depression, anxiety, suicide ideation, homicidal ideation, and hallucinations, 18:40 Respiratory: Positive for cough, Exam: 18:39 Constitutional: This is a well developed, well nourished patient who is awake, alert, snw and in no acute distress. Head/Face: Normocephalic, atraumatic. Eyes: Pupils equal round and reactive to light, extra-ocular motions intact. Lids and lashes normal. Conjunctiva and sclera are non-icteric and not injected. Cornea within normal limits. Periorbital areas with no swelling, redness, or edema. ENT: Nares patent. No nasal discharge, no septal abnormalities noted. Tympanic membranes are normal and external auditory canals are clear. Oropharynx with no redness, swelling, or masses, exudates, or evidence of obstruction, uvula midline. Mucous membranes moist. Neck: Trachea midline, no thyromegaly or masses palpated, and no cervical lymphadenopathy. Supple, full range of motion without nuchal rigidity, or vertebral point tenderness. No Meningismus. Chest/axilla: Normal chest wall appearance and motion. Nontender with no deformity. No lesions are appreciated. Cardiovascular: Regular rate and rhythm with a normal S1 and S2. No gallops, murmurs, or rubs. Normal PMI, no JVD. No pulse deficits. Abdomen/GI: Soft, non-tender, with normal bowel sounds. No distension or tympany. No guarding or rebound. No evidence of tenderness throughout. Back: No spinal tenderness. No costovertebral tenderness. Full range of motion. Skin: Warm, dry with normal turgor. Normal color with no rashes, no lesions, and no evidence of cellulitis. MS/ Extremity: Pulses equal, no cyanosis. Neurovascular intact. Full, normal range of motion. Neuro: Awake and alert, GCS 15, oriented to person, place, time, and situation. Cranial nerves II-XII grossly intact. Motor strength 5/5 in all extremities. Sensory grossly intact. Cerebellar exam normal. Normal gait. Psych: Awake, alert, with orientation to person, place and time. Behavior, mood, and affect are within normal limits. 18:39 Respiratory: the patient does not display signs of respiratory distress, Respirations: normal, Breath sounds: are clear throughout, +cough x 1 month, Vital Signs: 17:05 BP 123 / 78; Pulse 85; Resp 16; Temp 97.7; Pulse Ox 95% ; Weight 79.83 kg; Height 5 ft. bp 3 in. ; 19:00 BP 120 / 76; Pulse 82; Resp 16; Pulse Ox 96% ; vc1 17:05 Body Mass Index 31.18 (79.83 kg, 160.02 cm) bp MDM: 17:00 Patient medically screened. snw 18:39 Differential diagnosis: viral Infection, bacterial infection, bronchitis, pneumonia snw GERD. Data reviewed: vital signs, nurses notes. I considered the following discharge prescriptions or medication management in the emergency department Medications were administered in the Emergency Department. See MAR. Counseling: I had a detailed discussion with the patient and/or guardian regarding the historical points, exam findings, and any diagnostic results supporting the discharge/admit diagnosis, radiology results, the need for outpatient follow up, for definitive care, to return to the emergency department if symptoms worsen or persist or if there are any questions or concerns that arise at home. 06/11 17:08 Order name: Chest Pa And Lat (2 Views) XRAY; Complete Time: 18:13 bp Administered Medications: 19:06 Drug: Sucralfate PO 1 grams PO once Route: PO; vc1 19:07 Follow up: Response: Medication administered at discharge. vc1 19:06 Drug: Pantoprazole PO 40 mg PO once Route: PO; vc1 19:07 Follow up: Response: Medication administered at discharge. vc1 19:06 Drug: Famotidine PO 20 mg PO once Route: PO; vc1 19:07 Follow up: Response: Medication administered at discharge. vc1 Disposition: 18:43 I was immediately available on-site in the Emergency Department for consultation in the ms3 care of the patient. Disposition Summary: 06/11/23 18:38 Discharge Ordered Notes: Location: Home snw Condition: Stable snw Diagnosis - Gastro-esophageal reflux disease without esophagitis snw - Cough snw Followup: snw - With: Emergency Department - When: As needed - Reason: Worsening of condition Followup: snw - With: Private Physician - When: 2 - 3 days - Reason: Recheck today's complaints, Continuance of care, Re-evaluation by your physician Discharge Instructions: - Discharge Summary Sheet snw - Esophagitis snw - Gastroesophageal Reflux Disease, Adult snw Forms: - Medication Reconciliation Form snw - Thank You Letter snw - Antibiotic Education snw - Prescription Opioid Use snw - Patient Portal Instructions snw - Leadership Thank You Letter snw Prescriptions: - Protonix 40 mg Oral Tablet - take 1 tablet ORAL route once daily; 30 tablet; Refills: 0, Product Selection snw Permitted Signatures: Dispatcher [employer] Sadie Soto FNP-C FNP-Kellyw Adrián Meade, RN RN bp Barba, Diogenes, DO DO ms3 Calcote, Calista, RN RN vc1
--- NOTE | 2023-06-11 18:39 | ER ---
Nurse's Notes [facility] Name: Perry Guaman Age: 58 yrs Sex: Female : 1965 Arrival Date: 06/11/2023 Time: 16:54 Bed DX4 Private MD: Diagnosis: Gastro-esophageal reflux disease without esophagitis;Cough Presentation: 06/11 17:05 Chief complaint: Patient states: COUGH FOR 1 MONTH. Coronavirus screen: At this time, bp the client does not indicate any symptoms associated with coronavirus-19. Ebola Screen: No symptoms or risks identified at this time. Initial Sepsis Screen: Does the patient meet any 2 criteria? No. Patient's initial sepsis screen is negative. Does the patient have a suspected source of infection? No. Patient's initial sepsis screen is negative. Risk Assessment: Do you want to hurt yourself or someone else? Patient reports no desire to harm self or others. Onset of symptoms is unknown. 17:05 Method Of Arrival: Ambulatory bp 17:05 Acuity: SRINIVAS 4 bp Triage Assessment: 17:06 General: Appears in no apparent distress. Behavior is calm, cooperative, appropriate bp for age. Pain: Denies pain. Cardiovascular: Patient's skin is warm and dry. Historical: - Allergies: 17:06 Demerol; bp 17:06 Bactrim; bp 17:06 Septra; bp - PSHx: 17:06 Heart ablation; hyst.; bp - Immunization history:: Adult Immunizations up to date. - Social history:: Smoking status: Patient denies any tobacco usage or history of. Screenin:08 [facility] ED Fall Risk Assessment (Adult) History of falling in the last 3 months, vc1 including since admission No falls in past 3 months (0 pts) Confusion or Disorientation No (0 pts) Intoxicated or Sedated No (0 pts) Impaired Gait No (0 pts) Mobility Assist Device Used No (0 pt) Altered Elimination No (0 pt) Score/Fall Risk Level 0 - 2 = Low Risk Oriented to surroundings, Maintained a safe environment, Educated pt \T\ family on fall prevention, incl call for assistance when getting out of bed. Abuse screen: Denies threats or abuse. Nutritional screening: No deficits noted. Tuberculosis screening: No symptoms or risk factors identified. Vital Signs: 17:05 BP 123 / 78; Pulse 85; Resp 16; Temp 97.7; Pulse Ox 95% ; Weight 79.83 kg; Height 5 ft. bp 3 in. ; 19:00 BP 120 / 76; Pulse 82; Resp 16; Pulse Ox 96% ; vc1 17:05 Body Mass Index 31.18 (79.83 kg, 160.02 cm) bp ED Course: 16:57 Patient arrived in ED. mr 17:00 Diogenes Barba DO is Attending Physician. ms3 17:00 Sadie Domingo FNP-C is PHCP. snw 17:06 Triage completed. bp 17:06 Arm band placed on. bp 17:09 Sadie Domingo FNP-C is PHCP. snw 17:34 Chest Pa And Lat (2 Views) XRAY In Process Unspecified. EDMS 19:09 No provider procedures requiring assistance completed. Patient did not have IV access vc1 during this emergency room visit. Patient maintains SpO2 saturation greater than 95% on room air. Administered Medications: 19:06 Drug: Sucralfate PO 1 grams PO once Route: PO; vc1 19:07 Follow up: Response: Medication administered at discharge. vc1 19:06 Drug: Pantoprazole PO 40 mg PO once Route: PO; vc1 19:07 Follow up: Response: Medication administered at discharge. vc1 19:06 Drug: Famotidine PO 20 mg PO once Route: PO; vc1 19:07 Follow up: Response: Medication administered at discharge. vc1 Medication: 19:10 VIS not applicable for this client. vc1 Outcome: 18:38 Discharge ordered by . snw 19:09 Discharged to home ambulatory, vc1 19:09 Condition: good 19:09 Discharge instructions given to patient, Instructed on discharge instructions, follow up and referral plans. medication usage, Demonstrated understanding of instructions, follow-up care, medications, Prescriptions given X 1, 19:10 Patient left the ED. vc1 Signatures: Dispatcher [employer] EDMD Sadie Domingo FNP-C FNP-Jennifer Lu, Reg Reg DeshaunAdrián, RN RN bp Diogenes Barba DO DO ms3 Calista Skaggs RN RN vc1
[2023-06-11 23:04] VITALS: BP 120/76; TEMP 97.7; O2SAT 96
== END ==
LOC: ER 16:54
DX: K21.9 Gastro-esophageal reflux disease without esophagitis (principal); R05.9 Cough, unspecified; Z88.1 Allergy status to other antibiotic agents; Z88.5 Allergy status to narcotic agent; Z88.8 Allergy status to other drugs, medicaments and biological substances
CPT/HCPCS: 71046; 99284

== ENCOUNTER 2024-01-31 17:16 | Emergency (ER) | payer OTHER ==
--- OUTSIDE RECORDS SUMMARY | 2024-01-31 17:19 | XMS REPORT | Continuity of Care Document ---
Author Name Unknown Address [address] [facility] [address] [place] [address] [facility]connect Address 1200 [facility]. [address] [place] [address] Care Team Providers Care Director Global Name Role Phone Adrián Stevens Primary Care Physician [phone] Darlene Zamora Attending Clinician Unavailable VY GAONA Attending Clinician Unavailable Vy Hardy Attending Clinician Xavier Leslie Attending Clinician [phone] XAVIER CLEMENT Attending Clinician Unavailable Doctor Unassigned, Dalhart Attending Clinician U Darlene Cohen Admitting Clinician Unavailable Payers Payer Name Policy Type Policy Number Effective Date Expirati on Date Source [employer] [place] - OUT OF STATE [id number] 2018 00:00:00 [employer] O [id number] 2016 00:00:00 2017 00:00:00 Problems Condition Name Condition Details Condition Category Status Onset Date Resolution Date Last Treatment Date Treating Clinician Comments Source Acute pain of right knee Acute pain of right knee Disease Active 16 00:00: 00 [facility] Allergies, Adverse Reactions, Alerts Allergy Name Allergy Type Status Severity Reaction(s) Onset Date Inactive Date Treating Clinician Comments Source Sulfa (Sulfona mide Antibiot ics) Propensi ty to adverse reaction s Active Hives 2016-06 00:00: 00 [facility] Meperidi ne Hcl Propensi ty to adverse reaction s Active Nausea and/or Vomiting 08-17 00:00: 00 [facility] Septra I.V. Propensi ty to adverse reaction s Active Nausea and/or Vomiting 08-17 00:00: 00 [facility] Social History Social Habit Start Date Stop Date Quantity Comments Source Exposure to SARS-CoV-2 (event) 2022-01-17 00:00:00 2022-01-27 08:54:00 Not sure [facility] Alcohol intake 2022-01-27 00:00:00 2022-01-27 00:00:00 0 /d [facility] Sex Assigned At 1965 00:00:00 1965 00:00:00 [facility] Smoking Status Start Date Stop Date Source Never smoked tobacco [facility] Medications Ordered Medication Name Filled Medication Name Start Date Stop Date Current Medication? Ordering Clinician Indication Dosage Frequency Signature (SIG) Comments Components Source ONDANSETRON 4 mg disintegrat ing tablet 07-07 00:00: 00 Yes [id number] 4mg Take 1 tablet by mouth every 8 (eight) hours as needed for Nausea and Vomiting (N/V). [facility] methylPREDN ISolone (MEDROL, THALIA,) 4 mg tablets 08-17 00:00: 00 Yes 84mg Take 21 tablets by mouth SEE-INSTRU CTIONS. follow package directions [facility] Vital Signs Vital Name Observation Time Observation Value Comments S mara Systolic blood pressure 2022-01-27 13:59:00 130 mm[Hg] [facility] Diastolic blood pressure 2022-01-27 13:59:00 80 mm[Hg] [facility] Heart rate 2022-01-27 13:59:00 74 /min [facility] Body height 2022-01-27 13:59:00 162.6 cm [facility] Body weight 2022-01-27 13:59:00 81.647 kg [facility] BMI 2022-01-27 13:59:00 30.90 kg/m2 [facility] Encounters Start Date/Time End Date/Time Encounter Type Admission Type Attending [facility] Facility Care Department Encounter ID Source 2023-11-19 14:05:00 Inpatient Darlene Desai [facility] [id number] [facility] 2023-11-19 08:00:00 2023-11-19 08:00:00 Outpatient Darlene Desai [facility] [id number] 91 [facility] 2022-01-27 09:00:00 2022-01-27 09:47:57 Outpatient R VY GOANA [facility] [id number] [facility] 2022-01-27 09:00:00 2022-01-27 09:47:57 Office Visit Vy Gaona [facility] 1.2.840.114 350.1.13.10 4.2.7.2.[id number] [facility] 2019-07-07 14:28:25 2019-07-07 17:05:00 Emergency Xavier Clement [facility] 1.2.840.114 350.1.13.10 4.2.7.2.686 [id number] 2019-07-07 14:28:25 2019-07-07 17:05:00 Emergency Xavier Clement [facility] 1.2.840.114 350.1.13.10 4.2.7.2.[id number] [facility] 2019-07-07 14:28:25 2019-07-07 17:05:00 Emergency X URBANO XAVIER [facility] ERT [id number] [facility] 2019-07-07 00:00:00 2019-07-07 00:00:00 Orders Only Doctor Unassigned, Dalhart [facility] [id number] 350.1.13.10 4.2.7.2.686 [id number] 2019-07-07 00:00:00 2019-07-07 00:00:00 Orders Only Doctor Unassigned, Dalhart [facility] [id number] 350.1.13.10 4.2.7.2.[id number] [facility] Results Test Description Test Time Test Comments Results Resul t Comments Source - CT MAXIFAC W/O CONTRAST 2018-12-27 13:46:00 Name: TOSHA AGUIRREland : 1965 Age/S: 53 / F [address] Unit #: [id number] Loc: [place] [address] Phys: Derrek Golden III, MD Acct: [id number] Dis Date: Status: REG CLI PHONE #: [phone] Exam Date: 12/27/2018 1121 FAX #: Reason: CHRONIC SINUSITIS EXAMS: CPT: [id number] CT MAXIFAC W/O CONTRAST 33209 CLINICAL HISTORY: Chronic sinusitis. CT sinuses, unenhanced. [...] Report (CONTINUED) Name: TOSHA AGUIRRE [facility] : 1965 Age/S: 53 / F [address] Unit #: [id number] Loc: [place] [address] Phys: Derrek Golden III, MD Acct: [id number] Dis Date: Status: REG CLI PHONE #: [phone] Exam Date: 12/27/2018 1121 FAX #: Reason: CHRONIC SINUSITIS EXAMS: CPT: [id number] CT MAXIFAC W/O CONTRAST 10973 (Continued) CC: Adrián Stevens MD; Derrek Golden III, MD Technologist:Salas Sherman, RT(R)(CT) CTDI: DLP: Trnscb Date/Time: 12/27/2018 (1346) Chris Orig Print D/T: S: 12/27/2018 (9844) PAGE 2 Signed Report
--- NOTE | 2024-01-31 17:46 | ER ---
Nurse's Notes [facility] Name: Perry Guaman Age: 58 yrs Sex: Female : 1965 Arrival Date: 01/31/2024 Time: 17:16 Bed IW1 Private MD: Diagnosis: Acute sinusitis, unspecified Presentation: 01/30 17:25 Chief complaint: Patient states: having sinus pressure and congestion with headache tm6 starting yesterday. Coronavirus screen: Vaccine status: Patient reports receiving the 2nd dose of the covid vaccine. Ebola Screen: Patient negative for fever greater than or equal to 101.5 degrees Fahrenheit, and additional compatible Ebola Virus Disease symptoms Patient denies exposure to infectious person. Patient denies travel to an Ebola-affected area in the 21 days before illness onset. No symptoms or risks identified at this time. Initial Sepsis Screen: Does the patient meet any 2 criteria? No. Patient's initial sepsis screen is negative. Does the patient have a suspected source of infection? No. Patient's initial sepsis screen is negative. Risk Assessment: Do you want to hurt yourself or someone else? Patient reports no desire to harm self or others. Onset of symptoms was January 30, 2024. 17:25 Method Of Arrival: Ambulatory tm6 17:25 Acuity: SRINIVAS 4 tm6 Triage Assessment: 17:26 General: Appears in no apparent distress. Behavior is calm, cooperative. Pain: tm6 Complains of pain in forehead, right cheek and left cheek Pain does not radiate. Pain currently is 3 out of 10 on a pain scale. Quality of pain is described as pressure, Pain began 1 day ago. EENT: Reports nasal congestion sinus pressure. Neuro: Level of Consciousness is awake, alert, obeys commands, Oriented to person, place, time, situation, Reports headache. Cardiovascular: Patient's skin is warm and dry. Respiratory: Airway is patent Respiratory effort is even, unlabored, Respiratory pattern is regular, symmetrical. GI: No signs and/or symptoms were reported involving the gastrointestinal system. Abdomen is flat, non-distended. : No signs and/or symptoms were reported regarding the genitourinary system. Derm: No signs and/or symptoms reported regarding the dermatologic system. Musculoskeletal: No signs and/or symptoms reported regarding the musculoskeletal system. Historical: - Allergies: 17:26 Bactrim; tm6 17:26 Demerol; tm6 17:26 Septra; tm6 - PMHx: 17:26 sciatic arthritis; Gastroesophageal reflux disease; tm6 - PSHx: 17:26 Heart ablation; Total abdominal hysterectomy; tm6 - Immunization history:: Client reports receiving the 2nd dose of the Covid vaccine. - Infectious Disease History:: Denies. - Social history:: Smoking status: Patient denies any tobacco usage or history of. Patient/guardian denies using alcohol. - Family history:: not pertinent. - Hospitalizations: : No recent hospitalization is reported. Screenin:40 [facility] ED Fall Risk Assessment (Adult) History of falling in the last 3 months, tm6 including since admission No falls in past 3 months (0 pts) Confusion or Disorientation No (0 pts) Intoxicated or Sedated No (0 pts) Impaired Gait No (0 pts) Mobility Assist Device Used No (0 pt) Altered Elimination No (0 pt) Score/Fall Risk Level 0 - 2 = Low Risk Oriented to surroundings, Maintained a safe environment, Educated pt \T\ family on fall prevention, incl call for assistance when getting out of bed. Abuse screen: Denies threats or abuse. Denies injuries from another. Nutritional screening: No deficits noted. Tuberculosis screening: No symptoms or risk factors identified. Assessment: 17:40 Reassessment: see triage assessment. tm6 Vital Signs: 17:25 BP 147 / 77; Pulse 80; Resp 18; Temp 98.5(O); Pulse Ox 99% on R/A; Weight 84.37 kg; tm6 Height 5 ft. 3 in. ; Pain 3/10; 17:25 Body Mass Index 32.95 (84.37 kg, 160.02 cm) tm6 17:25 Pain Scale: Adult tm6 ED Course: 17:18 Patient arrived in ED. ra3 17:26 Triage completed. tm6 17:26 Arm band placed on right wrist. tm6 17:36 Wm Peralta MD is Attending Physician. rn 17:40 Patient has correct armband on for positive identification. Provided Education on: tm6 prescription med. 17:40 No provider procedures requiring assistance completed. Patient did not have IV access tm6 during this emergency room visit. Administered Medications: No medications were administered Medication: 17:40 VIS not applicable for this client. tm6 Outcome: 17:46 Discharge ordered by . rn 17:48 Discharged to home ambulatory, tm6 17:48 Condition: stable 17:48 Discharge instructions given to patient, Instructed on discharge instructions, follow up and referral plans. medication usage, Demonstrated understanding of instructions, follow-up care, medications, Prescriptions given X 1, 17:48 Patient left the ED. tm6 Signatures: Wm Peralta MD MD rn Tracy Ng RN RN tm6 Letty Villar 3
--- NOTE | 2024-01-31 17:46 | EDPHYS ---
Physician Documentation [facility] Name: Perry Guaman Age: 58 yrs Sex: Female : 1965 Arrival Date: 01/31/2024 Time: 17:16 Bed IW1 Private MD: ED Physician Wm Peralta HPI: 01/30 17:40 This 58 yrs old Female presents to ER via Ambulatory with complaints of Sinus rn Congestion. 17:40 The patient or guardian reports Sinus congestion and pressure. Onset: The rn symptoms/episode began/occurred 2 day(s) ago. Severity of symptoms: At their worst the symptoms were moderate, in the emergency department the symptoms are unchanged. Modifying factors: The symptoms are alleviated by nothing, the symptoms are aggravated by nothing. The patient has not experienced similar symptoms in the past. The patient has not recently seen a physician. Patient reports sinus infection for the last day, sinus pressure with sinus headache. Patient denies shortness of breath or cough. Reports recurrent sinus infections in the past. Non-smoker. No chronic lung problems.. Historical: - Allergies: 17:26 Bactrim; tm6 17:26 Demerol; tm6 17:26 Septra; tm6 - PMHx: 17:26 sciatic arthritis; Gastroesophageal reflux disease; tm6 - PSHx: 17:26 Heart ablation; Total abdominal hysterectomy; tm6 - Immunization history:: Client reports receiving the 2nd dose of the Covid vaccine. - Infectious Disease History:: Denies. - Social history:: Smoking status: Patient denies any tobacco usage or history of. Patient/guardian denies using alcohol. - Family history:: not pertinent. - Hospitalizations: : No recent hospitalization is reported. ROS: 17:40 Constitutional: Negative for fever, chills, and weight loss, ENT: Positive for sinus rn pressure and congestion Cardiovascular: Negative for chest pain, palpitations, and edema, Respiratory: Negative for shortness of breath, cough, wheezing, and pleuritic chest pain, Abdomen/GI: Negative for abdominal pain, nausea, vomiting, diarrhea, and constipation, Exam: 17:40 Constitutional: This is a well developed, well nourished patient who is awake, alert, rn and in no acute distress. Head/Face: Normocephalic, atraumatic. ENT: Mild erythema with left tonsillar exudate. Positive tender frontal and maxillary sinus. Neck: No meningismus. Cardiovascular: Regular rate and rhythm. No pulse deficits. Respiratory: No increased work of breathing, no retractions or nasal flaring. Vital Signs: 17:25 BP 147 / 77; Pulse 80; Resp 18; Temp 98.5(O); Pulse Ox 99% on R/A; Weight 84.37 kg; tm6 Height 5 ft. 3 in. ; Pain 3/10; 17:25 Body Mass Index 32.95 (84.37 kg, 160.02 cm) tm6 17:25 Pain Scale: Adult tm6 MDM: 17:36 Patient medically screened. rn 17:45 Differential Diagnosis: Upper Respiratory Infection Sinusitis. Data reviewed: vital rn signs, nurses notes, and as a result, I will discharge patient. Counseling: I had a detailed discussion with the patient and/or guardian regarding the historical points, exam findings, and any diagnostic results supporting the discharge/admit diagnosis, the need for outpatient follow up, to return to the emergency department if symptoms worsen or persist or if there are any questions or concerns that arise at home. Special discussion: I discussed with the patient/guardian in detail that at this point there is no indication for admission to the hospital. It is understood, however, that if the symptoms persist or worsen the patient needs to return immediately for re-evaluation. Administered Medications: No medications were administered Disposition Summary: 01/31/24 17:46 Discharge Ordered Notes: Location: Home rn Problem: new rn Symptoms: have improved rn Condition: Stable rn Diagnosis - Acute sinusitis, unspecified rn Followup: rn - With: Private Physician - When: As needed - Reason: Recheck today's complaints, Re-evaluation by your physician Discharge Instructions: - Discharge Summary Sheet rn - Sinusitis, Adult rn Forms: - Medication Reconciliation Form rn - Antibiotic business management intern - Prescription Opioid Use rn - Patient Portal Instructions rn - Leadership Thank You Letter rn Prescriptions: - Zithromax Z-Kane 250 mg Oral Tablet - take 1 tablet ORAL route as directed for 5 days Day 1 - take two (2) tablets rn one time. Day 2, 3, 4 , 5 take one (1) tablet once daily.; 6 tablet; Refills: 0, Product Selection Permitted Signatures: Wm Peralta MD MD rn Masterson, Tawney, RN RN tm6
[2024-01-31 18:01] VITALS: BP 147/77; TEMP 98.5; O2SAT 99
== END 2024-01-31 17:48 | disposition home or self-care (01) ==
LOC: ER 17:16
DX: J01.90 Acute sinusitis, unspecified (principal)
CPT/HCPCS: 99283

== ENCOUNTER 2024-10-01 08:55 | Emergency (ER) | payer OTHER ==
--- OUTSIDE RECORDS SUMMARY | 2024-10-01 08:58 | XMS REPORT | Continuity of Care Document ---
Author Name Unknown Address [address] [facility]. [address] [place] [address] Organization [facility] [place] Address [address] [facility]. [address] [place] [address] Care Team Providers Care Knobber Name Role Phone Adrián Stevens Primary Care Physician [phone] Darlene Zamora Attending Clinician Unavailable VY GAONA Attending Clinician Unavailable Vy Hardy Attending Clinician [phone] Xavier Leslie Attending Clinician XAVIER CLEMENT Attending Clinician Unavailable Doctor Unassigned, [place] Attending Clinician Darlene Brower Admitting Clinician Unavailable Payers Payer Name Policy Type Policy Number Effective Date Expirati on Date Source [facility] - OUT OF STATE [id number] 2018 00:00:00 [employer] O [id number] 2016 00:00:00 2017 00:00:00 Problems Condition Name Condition Details Condition Category Status Onset Date Resolution Date Last Treatment Date Treating Clinician Comments Source Acute pain of right knee Acute pain of right knee Disease Active 08-17 00:00: 00 [facility] Allergies, Adverse Reactions, Alerts Allergy Name Allergy Type Status Severity Reaction(s) Onset Date Inactive Date Treating Clinician Comments Source Sulfa (Sulfona mide Antibiot ics) Propensi ty to adverse reaction s Active Hives 2016-06 00:00: 00 [facility] Meperidi ne Hcl Propensi ty to adverse reaction s Active Nausea and/or Vomiting 08-17 00:00: 00 [facility] Septra I.V. Propensi ty to adverse reaction s Active Nausea and/or Vomiting 08-17 00:00: 00 [facility] Social History Social Habit Start Date Stop Date Quantity Comments Source Exposure to SARS-CoV-2 (event) 2022-01-17 00:00:00 2022-01-27 08:54:00 Not sure [facility] Alcohol intake 2022-01-27 00:00:00 2022-01-27 00:00:00 0 /d [facility] Sex Assigned At 1965 00:00:00 1965 00:00:00 [facility] Smoking Status Start Date Stop Date Source Never smoked tobacco [facility] Medications Ordered Medication Name Filled Medication Name Start Date Stop Date Current Medication? Ordering Clinician Indication Dosage Frequency Signature (SIG) Comments Components Source ONDANSETRON 4 mg disintegrat ing tablet 07-07 00:00: 00 Yes [id number] 4mg Take 1 tablet by mouth every 8 (eight) hours as needed for Nausea and Vomiting (N/V). [facility] methylPREDN ISolone (MEDROL, THALIA,) 4 mg tablets 08-17 00:00: 00 Yes 84mg Take 21 tablets by mouth SEE-INSTRU CTIONS. follow package directions [facility] Vital Signs Vital Name Observation Time Observation Value Comments S brien Systolic blood pressure 2022-01-27 13:59:00 130 mm[Hg] [facility] Diastolic blood pressure 2022-01-27 13:59:00 80 mm[Hg] [facility] Heart rate 2022-01-27 13:59:00 74 /min [facility] Body height 2022-01-27 13:59:00 162.6 cm [facility] Body weight 2022-01-27 13:59:00 81.647 kg [facility] BMI 2022-01-27 13:59:00 30.90 kg/m2 [facility] Encounters Start Date/Time End Date/Time Encounter Type Admission Type Attending [facility] Facility Care Department Encounter ID Source 2023-11-19 14:05:00 Inpatient Darlene Desai [facility] [id number] [facility] 2024-04-14 08:00:00 2024-04-14 08:00:00 Outpatient Darlene Desai [facility] [id number] 84 [facility] 2023-11-19 08:00:00 2023-11-19 08:00:00 Outpatient Darlene Desai [facility] [id number] 91 [facility] 2022-01-27 09:00:00 2022-01-27 09:47:57 Outpatient R VY GAONA [facility] [id number] [facility] 2022-01-27 09:00:00 2022-01-27 09:47:57 Office Visit Vy Gaona [facility] 1..840.114 350.1.13.10 4.2.7.2.686 [id number] [facility] 2019-07-07 14:28:25 2019-07-07 17:05:00 Emergency Xavier Clement [address]840.114 350.1.13.10 4.2.7.2.686 [id number] 2019-07-07 14:28:25 2019-07-07 17:05:00 Emergency Xavier Clement [address]840.114 350.1.13.10 4.2.7.2.686 [id number] [facility] 2019-07-07 14:28:25 2019-07-07 17:05:00 Emergency X XAVIER CLEMENT [facility] ERT [id number] [facility] 2019-07-07 00:00:00 2019-07-07 00:00:00 Orders Only Doctor Unassigned, Purvis [facility] 1.2.840.114 350.1.13.10 4.2.7.2.686 [id number] [facility] 2019-07-07 00:00:00 2019-07-07 00:00:00 Orders Only Doctor Unassigned, Purvis [facility] 1.2.840.114 350.1.13.10 4.2.7.2.686 [id number] Results Test Description Test Time Test Comments Results Resul t Comments Source - CT MAXIFAC W/O CONTRAST 2018-12-27 13:46:00 Name: TOSHA GUAMAN [facility] : 1965 Age/S: 53 / F [address] Unit #: [id number] Loc: [place] [address] Phys: Derrek Golden III, MD Acct: [id number] Dis Date: Status: REG CLI PHONE #: [phone] Exam Date: 12/27/2018 1121 FAX #: Reason: CHRONIC SINUSITIS EXAMS: CPT: [id number] CT MAXIFAC W/O CONTRAST 20975 CLINICAL HISTORY: Chronic sinusitis. CT sinuses, unenhanced. [...] PAGE 1 Signed Report (CONTINUED) Name: TOSHA GUAMAN [place] : 1965 Age/S: 53 / F [address] Unit #: [id number] Loc: [place] [address] Phys: Derrek Golden III, MD Acct: [id number] Dis Date: Status: REG CLI PHONE #: [phone] Exam Date: 12/27/2018 1121 FAX #: Reason: CHRONIC SINUSITIS EXAMS: CPT: [id number] CT MAXIFAC W/O CONTRAST 48452 (Continued) CC: Adrián Stevens MD; Derrek Golden III, MD Technologist:Salas Sherman, RT(R)(CT) CTDI: DLP: Trnscb Date/Time: 12/27/2018 (1346) [email or web address] Orig Print D/T: S: 12/27/2018 (3893) PAGE 2 Signed Report
[2024-10-01] MEDS ORDERED: FAMOTIDINE 20 MG/2 ML VIAL IV ONE (09:56)
[2024-10-01] MEDS ORDERED: ONDANSETRON 4 MG/2 ML VIAL ONE (09:56)
[2024-10-01] MEDS ORDERED: NA CHLORIDE 0.9% 1,000 ML ONE (09:57)
[2024-10-01 09:59] LABS: Absolute Basophils 0.1 K/uL (0-0.5); Absolute Lymphocytes (CBC) 2.2 K/uL (0.7-4.9); Absolute Monocytes 0.4 K/uL (0.1-1.3); Absolute Neutrophil 4.6 K/uL (1.8-8.0); Basophils % 1.1 % (0-1.3); Eosinophils % 28.8 % (0-4.4); Hematocrit 41.9 % (36.0-45.0); Hemoglobin 14.6 g/dL (12.0-15.0); Lymphocytes % 21.4 % (15.3-44.8); MCH 31.6 pg (27.0-35.0); MCHC 34.8 g/dL (32.0-36.0); MCV 90.6 fL (80-100); MPV 8.4 fL (7.6-11.3); Monocytes % 3.7 % (3.3-12.3); Nucleated Red Blood Cells % 0.1 % (0-0); Platelets 254 thou/uL (152-406); RBC Red Blood Cell Count 4.62 M/uL (3.86-4.86); Red Cell Distribution Width 13.1 % (12.1-15.2)
[2024-10-01 10:14] LABS: Influenza A Ag Negative; Influenza B Ag Negative; SARS-CoV-2 Antigen Rapid Res Negative (Negative)
[2024-10-01 10:19] LABS: Albumin 3.6 g/dL (3.4-5.0); Albumin/Globulin Ratio 0.9 (1.1-1.8); Anion Gap 7.6 mEq/L (5.0-15.0); Bilirubin Total 0.8 mg/dL (0.2-1.0); Globulin 4.1 g/dL (2.3-3.5); Potassium 3.6 mEq/L (3.5-5.1); Protein, Total 7.7 g/dL (6.4-8.2); Troponin High Sensitivity 10.2 pg/mL (<58.9)
--- NOTE | 2024-10-01 10:51 | EDPHYS ---
Physician Documentation [facility] Name: Perry Guaman Age: 59 yrs Sex: Female : 1965 Arrival Date: 10/01/2024 Time: 08:55 Bed 3 Private MD: TAM Physician Chinedu Zhou HPI: 10/01 10:38 This 59 yrs old Female presents to ER via Ambulatory with complaints of Flu félix Symptoms. 10:38 The patient presents with abdominal pain in the upper abdomen, in the lower abdomen. félix Onset: The symptoms/episode began/occurred 2 day(s) ago. The patient presents to the emergency department with diarrhea. Onset: The symptoms/episode began/occurred 3 day(s) ago. Possible causes: unknown. The symptoms are aggravated by nothing. The symptoms are alleviated by nothing. Associated signs and symptoms: The patient has no apparent associated signs or symptoms. The symptoms do not radiate. Associated signs and symptoms: Pertinent positives: diarrhea. Modifying factors: The symptoms are alleviated by nothing, the symptoms are aggravated by nothing. Severity of pain: At its worst the pain was mild. Severity of symptoms: At their worst the symptoms were moderate in the emergency department the symptoms are unchanged. The patient has experienced similar episodes in the past, several times. Historical: - Allergies: 09:06 Bactrim; ll1 09:06 Demerol; ll1 09:06 ; ll1 - PMHx: 09:06 Gastroesophageal reflux disease; sciatic arthritis; ll1 - PSHx: 09:06 Heart ablation; hyst.; Total abdominal hysterectomy; ll1 - Immunization history:: Adult Immunizations up to date. - Infectious Disease History:: Denies. - Social history:: Smoking status: Patient denies any tobacco usage or history of. ROS: 10:47 Constitutional: Negative for fever, chills, and weight loss, Eyes: Negative for injury, félix pain, redness, and discharge, ENT: Negative for injury, pain, and discharge, Neck: Negative for injury, pain, and swelling, Cardiovascular: Negative for chest pain, palpitations, and edema, Respiratory: Negative for shortness of breath, cough, wheezing, and pleuritic chest pain, Back: Negative for injury and pain, : Negative for injury, bleeding, discharge, and swelling, MS/Extremity: Negative for injury and deformity, Skin: Negative for injury, rash, and discoloration, Neuro: Negative for headache, weakness, numbness, tingling, and seizure, Psych: Negative for depression, anxiety, suicide ideation, homicidal ideation, and hallucinations, Allergy/Immunology: Negative for hives, rash, and allergies, Endocrine: Negative for neck swelling, polydipsia, polyuria, polyphagia, and marked weight changes, Hematologic/Lymphatic: Negative for swollen nodes, abnormal bleeding, and unusual bruising, 10:47 Abdomen/GI: Positive for abdominal pain, diarrhea, Exam: 10:47 Constitutional: This is a well developed, well nourished patient who is awake, alert, félix and in no acute distress. Head/Face: Normocephalic, atraumatic. Eyes: Pupils equal round and reactive to light, extra-ocular motions intact. Lids and lashes normal. Conjunctiva and sclera are non-icteric and not injected. Cornea within normal limits. Periorbital areas with no swelling, redness, or edema. ENT: Nares patent. No nasal discharge, no septal abnormalities noted. Tympanic membranes are normal and external auditory canals are clear. Oropharynx with no redness, swelling, or masses, exudates, or evidence of obstruction, uvula midline. Mucous membranes moist. Neck: Trachea midline, no thyromegaly or masses palpated, and no cervical lymphadenopathy. Supple, full range of motion without nuchal rigidity, or vertebral point tenderness. No Meningismus. Chest/axilla: Normal chest wall appearance and motion. Nontender with no deformity. No lesions are appreciated. Cardiovascular: Regular rate and rhythm with a normal S1 and S2. No gallops, murmurs, or rubs. Normal PMI, no JVD. No pulse deficits. Respiratory: Lungs have equal breath sounds bilaterally, clear to auscultation and percussion. No rales, rhonchi or wheezes noted. No increased work of breathing, no retractions or nasal flaring. Abdomen/GI: Soft, non-tender, with normal bowel sounds. No distension or tympany. No guarding or rebound. No evidence of tenderness throughout. Back: No spinal tenderness. No costovertebral tenderness. Full range of motion. Skin: Warm, dry with normal turgor. Normal color with no rashes, no lesions, and no evidence of cellulitis. MS/ Extremity: Pulses equal, no cyanosis. Neurovascular intact. Full, normal range of motion., bilateral aka Neuro: Awake and alert, GCS 15, oriented to person, place, time, and situation. Cranial nerves II-XII grossly intact. Motor strength 5/5 in all extremities. Sensory grossly intact. Cerebellar exam normal. Normal gait. Psych: Awake, alert, with orientation to person, place and time. Behavior, mood, and affect are within normal limits. 10:47 Musculoskeletal/extremity: DVT Exam: No signs of deep vein thrombosis. no pain, no félix swelling, no tenderness, negative Homans' sign noted on exam, no appreciated bluish discoloration, no erythema, no increased warmth, Vital Signs: 09:07 BP 136 / 81; Pulse 76; Resp 17; Temp 98.2; Pulse Ox 99% ; Weight 82.1 kg; Height 5 ft. ll1 3 in. ; Pain 5/10; 10:00 BP 122 / 82; Pulse 68; Resp 18; Pulse Ox 98% ; db 09:07 Body Mass Index 32.06 (82.10 kg, 160.02 cm) ll1 09:07 Pain Scale: Adult ll1 Ángel Coma Score: 10:47 Eye Response: spontaneous(4). Motor Response: obeys commands(6). Verbal Response: félix oriented(5). Total: 15. MDM: 09:07 Medical Screening Exam initiated félix 10:48 Differential diagnosis: Nonspecific abd pain, gastritis, pancreatitis, appendicitis, félix diverticulitis, viral gastroenteritis, gastroenteritis, Cholelithiasis, diverticulitis, gastroesophageal reflux disease, non-specific abd pain, pancreatitis, Peptic Ulcer Disease, urinary tract infection. Data reviewed: vital signs, nurses notes, lab test result(s). Consideration of Admission/Observation Escalation of care including admission/observation considered. I considered the following discharge prescriptions or medication management in the emergency department Medications were administered in the Emergency Department. See MAR. Care significantly affected by the following chronic conditions: gerd, oa, sciatic. 10/01 09:28 Order name: COVID-19 Ag + Flu A+B Ag; Complete Time: 10:32 félix 10/01 09:37 Order name: CBC with Diff 10/01 09:37 Order name: CMP; Complete Time: 10:32 10/01 09:37 Order name: Lipase; Complete Time: 10:32 10/01 09:37 Order name: Troponin High Sensitivity; Complete Time: 10:32 [facility] 10/01 10:04 Order name: Manual Differential EDMS Administered Medications: 10:00 Drug: NS 0.9% IV 1000 ml IV at 1000 ml once; to be given as a bolus over 60 minutes db Route: IV; Rate: 1000 ml; Site: left antecubital; 10:00 Drug: Ondansetron IVP 8 mg IVP once; over 2 minutes Route: IVP; Site: left antecubital; db 10:00 Drug: Famotidine IVP 20 mg IVP once; dilute with 10 mL 0.9% NaCl; give over 2 minutes db Route: IVP; Site: left antecubital; Disposition Summary: 10/01/24 10:50 Discharge Ordered Notes: Location: Home félix Problem: new félix Symptoms: have improved félix Condition: Stable félix Diagnosis - Weakness félix - Other malaise and fatigue félix - Diarrhea, unspecified félix Followup: félix - With: Private Physician - When: 2 - 3 days - Reason: Recheck today's complaints, Continuance of care, Re-evaluation by your physician Discharge Instructions: - Discharge Summary Sheet félix - Food Choices to Help Relieve Diarrhea, Adult félix - Diarrhea, Adult félix - Weakness félix - Fatigue félix - Nausea and Vomiting, Adult, [id number] félix - Weakness, [id number] félix - Deconditioning félix Forms: - Medication Reconciliation Form félix - Antibiotic Education félix - Prescription Opioid Use félix - Patient Portal Instructions félix - Leadership Thank You Letter félix - Work release form ll1 Prescriptions: - ondansetron 4 mg Oral Tablet,disintegrating - take 1 tablet ORAL route every 6-8 hours prn; 20 tablet; Refills: 0, Product félix Selection Permitted Signatures: Dispatcher [employer] EDMS Chinedu Zhou MD MD cha Lewis, Lynsay RN RN ll1 Lyla Xiao, RN RN db Corrections: (The following items were deleted from the chart) 09:37 09:37 CBC+H.LAB.BRZ ordered. EDMS EDMS 09:37 09:37 COMPREHENSIVE METABOLIC PANEL+C.LAB.BRZ ordered. EDMS EDMS 09:37 09:37 LIPASE+C.LAB.BRZ ordered. EDMS EDMS 09:37 09:37 Troponin High Sensitivity+C.LAB.BRZ ordered. EDMS EDMS
--- NOTE | 2024-10-01 10:51 | ER ---
Nurse's Notes [facility] Name: Perry Guaman Age: 59 yrs Sex: Female : 1965 Arrival Date: 10/01/2024 Time: 08:55 Bed 3 Private MD: Diagnosis: Weakness;Other malaise and fatigue;Diarrhea, unspecified Presentation: 10/01 09:07 Chief complaint: Patient states: Cough, congestion since 09/16. Went to her MD, took 5 ll1 days of Z-pack. Started having N/V/D 09/23. Coronavirus screen: Client denies travel out of the [place] in the last 14 days. congestion, cough unrelated to allergies, diarrhea, fatigue, nausea, vomiting. Client presents with at least one sign or symptom that may indicate coronavirus-19. Standard/surgical mask placed on the client. Ebola Screen: Patient denies travel to an Ebola-affected area in the 21 days before illness onset. Initial Sepsis Screen: Does the patient meet any 2 criteria? No. Patient's initial sepsis screen is negative. Does the patient have a suspected source of infection? No. Patient's initial sepsis screen is negative. Risk Assessment: Do you want to hurt yourself or someone else? Patient reports no desire to harm self or others. Onset of symptoms was September 16, 2024. 09:07 Method Of Arrival: Ambulatory ll1 09:07 Acuity: SRINIVAS 3 ll1 Triage Assessment: 09:07 General: Appears in no apparent distress. Behavior is calm, cooperative, appropriate ll1 for age, Reports fatigue for. Pain: Complains of pain in abdomen Pain currently is 5 out of 10 on a pain scale. Quality of pain is described as aching, crampy. EENT: Reports nasal congestion. Neuro: Reports dizziness, weakness. Respiratory: Reports cough that is. GI: Reports lower abdominal pain, upper abdominal pain, cramping, diarrhea, nausea, vomiting. Historical: - Allergies: 09:06 Bactrim; ll1 09:06 Demerol; ll1 09:06 Febra; ll1 - PMHx: 09:06 Gastroesophageal reflux disease; sciatic arthritis; ll1 - PSHx: 09:06 Heart ablation; hyst.; Total abdominal hysterectomy; ll1 - Immunization history:: Adult Immunizations up to date. - Infectious Disease History:: Denies. - Social history:: Smoking status: Patient denies any tobacco usage or history of. Screenin:07 [facility] ED Fall Risk Assessment (Adult) History of falling in the last 3 months, db including since admission No falls in past 3 months (0 pts) Confusion or Disorientation No (0 pts) Intoxicated or Sedated No (0 pts) Impaired Gait No (0 pts) Mobility Assist Device Used No (0 pt) Altered Elimination No (0 pt) Score/Fall Risk Level 0 - 2 = Low Risk Oriented to surroundings, Maintained a safe environment. Abuse screen: Denies threats or abuse. Denies injuries from another. Nutritional screening: No deficits noted. Tuberculosis screening: No symptoms or risk factors identified. Assessment: 10:00 Reassessment: Patient appears in no apparent distress at this time. Patient and/or db family updated on plan of care and expected duration. Pain level reassessed. Patient is alert, oriented x 3, equal unlabored respirations, skin warm/dry/pink. General: Appears in no apparent distress. comfortable, Behavior is calm, cooperative. Neuro: Level of Consciousness is awake, alert, obeys commands, Oriented to person, place, time, situation. Respiratory: Airway is patent Respiratory effort is even, unlabored, Respiratory pattern is regular, symmetrical. Vital Signs: 09:07 BP 136 / 81; Pulse 76; Resp 17; Temp 98.2; Pulse Ox 99% ; Weight 82.1 kg; Height 5 ft. ll1 3 in. ; Pain 5/10; 10:00 BP 122 / 82; Pulse 68; Resp 18; Pulse Ox 98% ; db 09:07 Body Mass Index 32.06 (82.10 kg, 160.02 cm) ll1 09:07 Pain Scale: Adult ll1 Ángel Coma Score: 10:47 Eye Response: spontaneous(4). Motor Response: obeys commands(6). Verbal Response: félix oriented(5). Total: 15. ED Course: 08:57 Patient arrived in ED. im 09:06 Arm band placed on. ll1 09:07 Chinedu Zhou MD is Attending Physician. félix 09:09 Triage completed. ll1 09:22 Adrianna Covington RN is Primary Nurse. ph 09:49 Initial lab(s) drawn, by me, sent to lab. Inserted saline lock: 22 gauge in left db antecubital area, using aseptic technique. Blood collected. Flushed with 10 mL NS. 09:52 COVID-19 Ag + Flu A+B Ag Sent. ll1 10:08 Patient has correct armband on for positive identification. Bed in low position. Call db light in reach. Side rails up X 1. Pulse ox on. NIBP on. Warm blanket given. Pillow given. Administered Medications: 10:00 Drug: NS 0.9% IV 1000 ml IV at 1000 ml once; to be given as a bolus over 60 minutes db Route: IV; Rate: 1000 ml; Site: left antecubital; 10:00 Drug: Ondansetron IVP 8 mg IVP once; over 2 minutes Route: IVP; Site: left antecubital; db 10:00 Drug: Famotidine IVP 20 mg IVP once; dilute with 10 mL 0.9% NaCl; give over 2 minutes db Route: IVP; Site: left antecubital; Medication: 10:06 VIS not applicable for this client. db Outcome: 10:50 Discharge ordered by . félix 11:15 Patient left the ED. bd Signatures: Neha Garrido Corey, MD MD cha Hall, Patricia RN RN Rhys Wing RN RN ll1 Lyla Xiao RN RN db Sandra Hollis
[2024-10-01] MEDS ORDERED: dexAMETHasone 10 MG/ML VIAL ONE (11:10)
[2024-10-01 12:55] LABS: Blood Morphology Comment NOT SEEN (NOT SEEN); Differential Total Cells Count 100; Eosinophils 26 % (0-3); Lymphocytes 27 % (15-42); Metamyelocytes 1 % (0-0); Monocytes 3 % (0-10); Platelet Estimate ADEQ; Segmented Neutrophils 42 % (40-80)
[2024-10-01 13:19] VITALS: TEMP 98.2
[2024-10-01 13:21] VITALS: BP 122/82; O2SAT 98
== END 2024-10-01 11:15 | disposition home or self-care (01) ==
LOC: ER 08:55
DX: R53.1 Weakness (principal); R19.7 Diarrhea, unspecified; R53.81 Other malaise; R53.83 Other fatigue; Z11.52 Encounter for screening for COVID-19
CPT/HCPCS: 36415; 80053; 83690; 84484; 85025; 87428; J1100; J2405; J7030